=== PATIENT | female | born 1960 | race Caucasian/White ===

== ENCOUNTER → 2017-11-09 11:09 | Outpatient (CLI) | payer OTHER, SELFPAY ==
--- NOTE | 2017-11-09 | DI.MG.S_ITS ---
BILATERAL DIGITAL SCREENING MAMMOGRAM 3D/2D WITH CAD: 11/09/2017 CLINICAL: Routine screening. Family history of breast cancer. Comparison is made to exams dated: 07/16/2008 mammogram, 08/31/2006 mammogram, and 04/22/2004 mammogram - [facility]. The tissue of both breasts is heterogeneously dense. This may lower the sensitivity of mammography. Current study was also evaluated with a Computer Aided Detection (CAD) system. No significant masses, calcifications, or other findings are seen in either breast. There has been no significant interval change. IMPRESSION: NEGATIVE There is no mammographic evidence of malignancy. A 1 year screening mammogram is recommended. This exam was interpreted at Station ID: [id number]. NOTE: For mammograms, a report in lay terms will be sent to the patient. Approximately 15% of breast malignancies will not be visualized mammographically. In the management of a palpable breast mass, a negative mammogram must not discourage biopsy of a clinically suspicious lesion. Electronically Signed By: Maria Fernanda baez/godwin:11/09/2017 12:25:17 copy to: RACHAEL THOMAS letter sent: Normal Exam ACR BI-RADS Category 1: Negative [id number]
== END ==
PROVIDERS: Family Provider Family Medicine; PCP Family Medicine; Visit Provider Physician Assistant Medical
DX: Z12.31 Encounter for screening mammogram for malignant neoplasm of breast (principal); Z80.3 Family history of malignant neoplasm of breast
CPT/HCPCS: 77063; 77067

== ENCOUNTER 2019-01-10 16:27 | Emergency (ER) | payer OTHER, SELFPAY ==
[2019-01-10 16:54] VITALS: BP 158/78; PULSE 56; RESP 16; TEMP 36.4; O2SAT 98; BMI 32.2
--- NOTE | 2019-01-10 18:48 | DI.CT.S_ITS ---
PROCEDURE: CT CERVICAL SPINE WO CON INDICATIONS: weight dropped on head, c spine pain TECHNIQUE: Noncontrast 3 mm thick sections acquired from the skull base to the T4 level. Sagittal and coronal reformats were then constructed. For radiation dose reduction, the following was used: automated exposure control, adjustment of mA and/or kV according to patient size. COMPARISON: None. FINDINGS: Image quality: Excellent. Bones: Postsurgical changes compatible C4-C6 ACDF. Orthopedic hardware is intact. No lucency is identified at the bone hardware interface. No fractures or dislocations. There is approximately 2 mm of C7-T1 degenerative anterolisthesis. Visualized superior ribs are intact. Soft tissues: Prevertebral soft tissues are normal in thickness. No paravertebral hematomas. No apical pneumothoraces. IMPRESSION: No fracture. No acute osseous lesion. If there are persistent symptoms or continued clinical suspicion for pathology, then MRI should be considered for further evaluation. Dictated by: Daisy Doshi MD, PhD on 01/10/2019 at 19:39 Approved by: Daisy Doshi MD, PhD on 01/10/2019 at 19:45
--- NOTE | 2019-01-10 19:41 | DI.RAD.S_ITS ---
PROCEDURE: XR LUMBAR SPINE 2-3V INDICATIONS: pain after box fell on head TECHNIQUE: 3 views of the lumbar spine were acquired. COMPARISON: None. FINDINGS: Bones: 5 [id number]-lfijoer vertebrae are present. There is normal bony alignment. No vertebral body compression fractures. No suspicious bony lesions. Mild multilevel degenerative disc disease. Soft tissues: Overlying bowel gas pattern is normal. No suspicious soft tissue calcifications. IMPRESSION: No fracture. No acute osseous lesion. If there are persistent symptoms or continued clinical suspicion for pathology, then MRI should be considered for further evaluation. Dictated by: Daisy Doshi MD, PhD on 01/10/2019 at 20:11 Approved by: Daisy Doshi MD, PhD on 01/10/2019 at 20:12
--- NOTE | 2019-01-10 19:41 | DI.RAD.S_ITS ---
PROCEDURE: XR THORACIC SPINE 2V INDICATIONS: pain after box fell on head TECHNIQUE: 2 views of the thoracic spine were acquired. COMPARISON: None. FINDINGS: Bones: No fractures or dislocations. No suspicious bony lesions. 12 pairs of ribs are noted, and appear intact where visualized. Mild multilevel degenerative changes. Soft tissues: No paravertebral stripe thickening. IMPRESSION: No fracture. No acute osseous lesion. If there are persistent symptoms or continued clinical suspicion for pathology, then MRI should be considered for further evaluation. Dictated by: Daisy Doshi MD, PhD on 01/10/2019 at 19:55 Approved by: Daisy Doshi MD, PhD on 01/10/2019 at 19:55
[2019-01-10] MEDS: CYCLOBENZAPRINE 10 MG TABLET PO (19:48)
[2019-01-10] MEDS: KETOROLAC 60 MG/2 ML VIAL IM (20:18)
--- NOTE | 2019-01-10 20:43 | ED.BACK ---
HPI - Back Pain/Injury <LAURA Cuadra- - Last Filed: 01/10/19 20:48> General Chief Complaint: Back Pain/Injury Stated Complaint: Box fell on head @ work, sent from [place] Time Seen by Provider: 01/10/19 18:28 Source: patient and family Mode of arrival: ambulatory Limitations: no limitations History of Present Illness HPI Narrative: The patient is a 58-year-old female nonsmoker with history of GERD and hypothyroid who presents with a chief complaint of neck and back pain. She states that she had a 10 lb box a fall on her head on Sunday. Since then she has had midline neck pain as well as muscle spasms going up and down her back. She complains of pain down her mid T-spine. She denies any fevers nausea vomiting or diarrhea. She denies any history of cancer. She denies any saddle anesthesia, groin numbness or incontinence of bowel or incontinence of bladder. She was evaluated at a clinic at [facility] prior to being sent here. She states that she was sent here for a neck CT, comes without a collar. Related Data Home Medications Medication Instructions Recorded Confirmed levothyroxine 25 mcg PO DAILY 01/10/19 01/10/19 trazodone 100 mg PO DAILY 01/10/19 01/10/19 Previous Rx's Medication Instructions Recorded omeprazole 40 mg PO QA #20 cap 05/21/17 Allergies Allergy/AdvReac Type Severity Reaction Status Date / Time aspirin [ASPIRIN] Allergy Severe MOUTH Verified 01/10/19 19:47 SWELLING Penicillins [PENICILLINS] Allergy Intermediate STOMACH Verified 01/10/19 19:47 PAIN Sulfa (Sulfonamide Allergy Mild STOMACH Verified 01/10/19 19:47 Antibiotics) PAIN [SULFA (SULFONAMIDE ANTIBIOTICS)] Review of Systems <SABRINA Cuadra - Last Filed: 01/10/19 20:48> Review of Systems GENERAL: Denies chills, fatigue, malaise, fever, sweats. HEENT: Denies sinus pain, ear pain, sore throat, difficulty swallowing, dizziness. RESPIRATORY: Denies dyspnea, cough, wheezing, hemoptysis, sputum. CARDIOVASCULAR: Denies chest pain, palpitations, orthopnea, edema, GASTROINTESTINAL: Denies nausea, vomiting, abdominal pain, diarrhea, constipation, melena. : Denies dysuria, frequency, incontinence, hematuria, urinary retention. MUSCULOSKELETAL: See HPI SKIN: Denies rash, skin lesions, or other NEUROLOGIC: See HPI PSYCHIATRIC: No concerning psychosocial issues. 12 point review of systems is negative except for those stated above PFSH <MADELYN Cuadra - Last Filed: 01/10/19 20:48> Medical History (Updated 01/10/19 @ 20:44 by MADELYN Cuadra) Hypothyroid (Acute) Social History Smoking Status: Never smoker Social History Smoking Status: Never smoker Exam <MADELYN Cuadra - Last Filed: 01/10/19 20:48> Narrative Exam Narrative: GENERAL: This is a well-nourished, well-developed patient, in mild distress. HEAD: Atraumatic. Normocephalic. No temporal or scalp tenderness. EYES: Pupils equal round and reactive. Extraocular motions intact. No scleral icterus. No injection or drainage. ENT: Nose without bleeding, purulent drainage or septal hematoma. Throat without erythema, tonsillar hypertrophy or exudate. Uvula midline. Airway patent. No nystagmus. NECK: Trachea midline. No JVD or lymphadenopathy. Supple, nontender, no meningeal signs. CARDIOVASCULAR: Regular rate and rhythm RESPIRATORY: Clear to auscultation. Breath sounds equal bilaterally. No wheezes, rales, or rhonchi. No cough. No increased respiratory effort. No accessory muscle use. GASTROINTESTINAL: Abdomen soft, non-tender, nondistended. No hepato-splenomegaly, or palpable masses. No guarding. EXTREMITIES: No clubbing, cyanosis, or edema. No joint tenderness, effusion, or edema noted. BACK: Pain to palpation midline C-spine, T-spine and bilateral paraspinal muscles lumbar spine. No palpable step-offs or deformities. NEURO: AOx3. Strength is equal upper and lower extremities bilaterally. Stable gait. No gross cranial nerve deficit. SKIN: No rash or erythema. Initial Vital Signs Initial Vital Signs: Vital Signs Temperature 97.5 F L 01/10/19 16:54 Pulse Rate 56 L 01/10/19 16:54 Respiratory Rate 16 01/10/19 16:54 Blood Pressure 158/78 H 01/10/19 16:54 Pulse Oximetry 98 01/10/19 16:54 <Elie Marr MD - Last Filed: 01/11/19 05:20> Initial Vital Signs Initial Vital Signs: Vital Signs Temperature 97.5 F L 01/10/19 16:54 Pulse Rate 56 L 01/10/19 16:54 Respiratory Rate 16 01/10/19 16:54 Blood Pressure 158/78 H 01/10/19 16:54 Pulse Oximetry 98 01/10/19 16:54 Scores <MADELYN Cuadra - Last Filed: 01/10/19 20:48> GCS [place] coma scale eye opening: Spontaneous Cristi coma scale verbal response: Orientated [place] coma scale motor response: Obey commands [place] coma scale total score: 15 Course <MADELYN Cuadra - Last Filed: 01/10/19 20:48> Orders Ordered: Discontinued Medications Cyclobenzaprine HCl (Flexeril) 10 mg PO NOW ONE Stop: 01/10/19 19:34 Last Admin: 01/10/19 19:48 Dose: 10 mg Ketorolac Tromethamine (Toradol) 60 mg IM NOW ONE Stop: 01/10/19 19:34 Last Admin: 01/10/19 20:18 Dose: 60 mg Vital Signs - 8 hr 01/10/19 16:54 Temperature 97.5 F L Pulse Rate 56 L Respiratory Rate 16 Blood Pressure 158/78 H Pulse Oximetry 98 <Elie Marr MD - Last Filed: 01/11/19 05:20> Orders Ordered: Discontinued Medications Cyclobenzaprine HCl (Flexeril) 10 mg PO NOW ONE Stop: 01/10/19 19:34 Last Admin: 01/10/19 19:48 Dose: 10 mg Ketorolac Tromethamine (Toradol) 60 mg IM NOW ONE Stop: 01/10/19 19:34 Last Admin: 01/10/19 20:18 Dose: 60 mg Vital Signs - 8 hr 01/10/19 16:54 Temperature 97.5 F L Pulse Rate 56 L Respiratory Rate 16 Blood Pressure 158/78 H Pulse Oximetry 98 MDM - Back Pain/Injury <MADELYN Cuadra - Last Filed: 01/10/19 20:48> Imaging Data Lumbar x-ray: Radiologist's impression: [address] [id number] XRay Report Signed Patient: Mary Brown [facility]#: [id number] : 1960Acct:[id number] Age/Sex: 58 / FDate of Service: 01/10/19 Loc: ED Accession Number: [id number] Procedure: XR lumbar spine 2-3V Ordering Provider: Sandra Garrett PROCEDURE: XR LUMBAR SPINE 2-3V INDICATIONS: pain after box fell on head TECHNIQUE: 3 views of the lumbar spine were acquired. COMPARISON: None. FINDINGS: Bones: 5 qbs-puh-cqdadwn vertebrae are present. There is normal bony alignment. No vertebral body compression fractures. No suspicious bony lesions. Mild multilevel degenerative disc disease. Soft tissues: Overlying bowel gas pattern is normal. No suspicious soft tissue calcifications. IMPRESSION: No fracture. No acute osseous lesion. If there are persistent symptoms or continued clinical suspicion for pathology, then MRI should be considered for further evaluation. Dictated by: Daisy Doshi MD, PhD on 01/10/2019 at 20:11 Approved by: Daisy Doshi MD, PhD on 01/10/2019 at 20:12 T-spine x-ray: Radiologist's impression: [address] [address] XRay Report Signed Patient: Mary Brown [facility]#: [id number] : 1960Acct:[id number] Age/Sex: 58 / FDate of Service: 01/10/19 Loc: ED Accession Number: [id number] Procedure: XR thoracic spine 2V Ordering Provider: Sandra Garrett PROCEDURE: XR THORACIC SPINE 2V INDICATIONS: pain after box fell on head TECHNIQUE: 2 views of the thoracic spine were acquired. COMPARISON: None. FINDINGS: Bones: No fractures or dislocations. No suspicious bony lesions. 12 pairs of ribs are noted, and appear intact where visualized. Mild multilevel degenerative changes. Soft tissues: No paravertebral stripe thickening. IMPRESSION: No fracture. No acute osseous lesion. If there are persistent symptoms or continued clinical suspicion for pathology, then MRI should be considered for further evaluation. Dictated by: Daisy Doshi MD, PhD on 01/10/2019 at 19:55 Approved by: Daisy Doshi MD, PhD on 01/10/2019 at 19:55 CT C-spine: Radiologist's impression: [address] [address] [address] Scan Report Signed Patient: Mary Brown [facility]#: [id number] : 1960Acct:[id number] Age/Sex: 58 / FDate of Service: 01/10/19 Loc: ED Accession Number: [id number] Procedure: CT cervical spine wo con Ordering Provider: Sandra Garrett [employer]PER- PROCEDURE: CT CERVICAL SPINE WO CON INDICATIONS: weight dropped on head, c spine pain TECHNIQUE: Noncontrast 3 mm thick sections acquired from the skull base to the T4 level. Sagittal and coronal reformats were then constructed. For radiation dose reduction, the following was used: automated exposure control, adjustment of mA and/or kV according to patient size. COMPARISON: None. FINDINGS: Image quality: Excellent. Bones: Postsurgical changes compatible C4-C6 ACDF. Orthopedic hardware is intact. No lucency is identified at the bone hardware interface. No fractures or dislocations. There is approximately 2 mm of C7-T1 degenerative anterolisthesis. Visualized superior ribs are intact. Soft tissues: Prevertebral soft tissues are normal in thickness. No paravertebral hematomas. No apical pneumothoraces. IMPRESSION: No fracture. No acute osseous lesion. If there are persistent symptoms or continued clinical suspicion for pathology, then MRI should be considered for further evaluation. Dictated by: Daisy Doshi MD, PhD on 01/10/2019 at 19:39 Approved by: Daisy Doshi MD, PhD on 01/10/2019 at 19:45 The patient is a 58 MDM Narrative Medical decision making narrative: The patient is a 58-year-old female who presents with the chief complaint neck and back pain. She had a 10 lb box fall on her head a few days ago. She does have midline C-spine tenderness to palpation, so she was placed in a C-collar and a CT of her C-spine was obtained. We also obtained plain films of her T and L-spine. She was given Toradol and Flexeril in the emergency department with good effect. She has no acute findings on her imaging. She has no red flag symptoms of incontinence of bowel, incontinence of bladder or saddle anesthesia. I did offer her prescriptions of pain medicine, but she states she would prefer to follow up [place]. He she again declines pain medication prescriptions from me. After I told her imaging was negative, she requested to leave immediately. I discussed at length coming back to the ER for any acute concerns such as incontinence of bowel, incontinence of bladder or saddle anesthesia. Encouraged her to follow up with PCP. No questions or concerns upon discharge. Discharge Plan Departure Patient Disposition: Home Clinical Impression: Acute neck pain, Muscle spasm Back pain Qualifiers: Back pain location: thoracic back pain Chronicity: acute Back pain laterality: bilateral Qualified Code(s): M54.6 - Pain in thoracic spine Discharge Date/Time: 01/10/19 20:59 Interventions: ED Discharge Assessment Last Done: 01/10/19 20:59 Instructions: DI for Neck Sprain, DI for Neck Pain, DI for Back Spasm, DI for Back Strain or Sprain Activity Restrictions/Additional Instructions: Your CT scan and x-rays came back with no acute findings. You have elected to follow up with primary care provider for prescriptions. In the meantime, do not take ibuprofen Aleve or other NSAIDs for 8 hours after her emergency department visit. I suggest use [id number] cream such as Aspercreme or lidocaine patches. Please follow up with primary care provider. Please come back to the ER for any acute concerns such as incontinence of bowel, incontinence of bladder except Prescriptions: No Action omeprazole 40 MG capsule,delayed release(DR/EC) 40 mg PO QAM Qty: 20 RF: 0 levothyroxine 25 mcg Tablet 25 mcg PO DAILY RF: 0 trazodone 100 mg Tablet 100 mg PO DAILY RF: 0 Referrals: Kristopher Coburn MD [Primary Care Provider] - <Elie Marr MD - Last Filed: 01/11/19 05:20> Cosign ED Attending Cosignature Attestation: I was present in the ER at the time of this patient's care. I was available for consultation or to evaluate the patient directly. I agree with the evaluation, assessment and treatment plan.
--- NOTE | 2019-01-10 20:48 | ED_ITS ---
HPI - Back Pain/Injury <LAURA Cuadra- - Last Filed: 01/10/19 20:48> General Chief Complaint: Back Pain/Injury Stated Complaint: Box fell on head @ work, sent from [place] Time Seen by Provider: 01/10/19 18:28 Source: patient and family Mode of arrival: ambulatory Limitations: no limitations History of Present Illness HPI Narrative: The patient is a 58-year-old female nonsmoker with history of GERD and hypothyroid who presents with a chief complaint of neck and back pain. She states that she had a 10 lb box a fall on her head on Sunday. Since then she has had midline neck pain as well as muscle spasms going up and down her back. She complains of pain down her mid T-spine. She denies any fevers nausea vomiting or diarrhea. She denies any history of cancer. She denies any saddle anesthesia, groin numbness or incontinence of bowel or incontinence of bladder. She was evaluated at a clinic at [facility] prior to being sent here. She states that she was sent here for a neck CT, comes without a collar. Related Data Home Medications Medication Instructions Recorded Confirmed levothyroxine 25 mcg PO DAILY 01/10/19 01/10/19 trazodone 100 mg PO DAILY 01/10/19 01/10/19 Previous Rx's Medication Instructions Recorded omeprazole 40 mg PO QA #20 cap 05/21/17 Allergies Allergy/AdvReac Type Severity Reaction Status Date / Time aspirin [ASPIRIN] Allergy Severe MOUTH Verified 01/10/19 19:47 SWELLING Penicillins [PENICILLINS] Allergy Intermediate STOMACH Verified 01/10/19 19:47 PAIN Sulfa (Sulfonamide Allergy Mild STOMACH Verified 01/10/19 19:47 Antibiotics) PAIN [SULFA (SULFONAMIDE ANTIBIOTICS)] Review of Systems <SABRINA Cuadra - Last Filed: 01/10/19 20:48> Review of Systems GENERAL: Denies chills, fatigue, malaise, fever, sweats. HEENT: Denies sinus pain, ear pain, sore throat, difficulty swallowing, dizziness. RESPIRATORY: Denies dyspnea, cough, wheezing, hemoptysis, sputum. CARDIOVASCULAR: Denies chest pain, palpitations, orthopnea, edema, GASTROINTESTINAL: Denies nausea, vomiting, abdominal pain, diarrhea, constipation, melena. : Denies dysuria, frequency, incontinence, hematuria, urinary retention. MUSCULOSKELETAL: See HPI SKIN: Denies rash, skin lesions, or other NEUROLOGIC: See HPI PSYCHIATRIC: No concerning psychosocial issues. 12 point review of systems is negative except for those stated above PFSH <MADELYN Cuadra - Last Filed: 01/10/19 20:48> Medical History (Updated 01/10/19 @ 20:44 by MADELYN Cuadra) Hypothyroid (Acute) Social History Smoking Status: Never smoker Social History Smoking Status: Never smoker Exam <MADELYN Cuadra - Last Filed: 01/10/19 20:48> Narrative Exam Narrative: GENERAL: This is a well-nourished, well-developed patient, in mild distress. HEAD: Atraumatic. Normocephalic. No temporal or scalp tenderness. EYES: Pupils equal round and reactive. Extraocular motions intact. No scleral icterus. No injection or drainage. ENT: Nose without bleeding, purulent drainage or septal hematoma. Throat without erythema, tonsillar hypertrophy or exudate. Uvula midline. Airway patent. No nystagmus. NECK: Trachea midline. No JVD or lymphadenopathy. Supple, nontender, no meningeal signs. CARDIOVASCULAR: Regular rate and rhythm RESPIRATORY: Clear to auscultation. Breath sounds equal bilaterally. No wheezes, rales, or rhonchi. No cough. No increased respiratory effort. No accessory muscle use. GASTROINTESTINAL: Abdomen soft, non-tender, nondistended. No hepato- splenomegaly, or palpable masses. No guarding. EXTREMITIES: No clubbing, cyanosis, or edema. No joint tenderness, effusion, or edema noted. BACK: Pain to palpation midline C-spine, T-spine and bilateral paraspinal muscles lumbar spine. No palpable step-offs or deformities. NEURO: AOx3. Strength is equal upper and lower extremities bilaterally. Stable gait. No gross cranial nerve deficit. SKIN: No rash or erythema. Initial Vital Signs Initial Vital Signs: Vital Signs Temperature 97.5 F L 01/10/19 16:54 Pulse Rate 56 L 01/10/19 16:54 Respiratory Rate 16 01/10/19 16:54 Blood Pressure 158/78 H 01/10/19 16:54 Pulse Oximetry 98 01/10/19 16:54 <Elie Marr MD - Last Filed: 01/11/19 05:20> Initial Vital Signs Initial Vital Signs: Vital Signs Temperature 97.5 F L 01/10/19 16:54 Pulse Rate 56 L 01/10/19 16:54 Respiratory Rate 16 01/10/19 16:54 Blood Pressure 158/78 H 01/10/19 16:54 Pulse Oximetry 98 01/10/19 16:54 Scores <MADELYN Cuadra - Last Filed: 01/10/19 20:48> GCS Cristi coma scale eye opening: Spontaneous Cristi coma scale verbal response: Orientated Cristi coma scale motor response: Obey commands [place] coma scale total score: 15 Course <MADELYN Cuadra - Last Filed: 01/10/19 20:48> Orders Ordered: Discontinued Medications Cyclobenzaprine HCl (Flexeril) 10 mg PO NOW ONE Stop: 01/10/19 19:34 Last Admin: 01/10/19 19:48 Dose: 10 mg Ketorolac Tromethamine (Toradol) 60 mg IM NOW ONE Stop: 01/10/19 19:34 Last Admin: 01/10/19 20:18 Dose: 60 mg Vital Signs - 8 hr 01/10/19 16:54 Temperature 97.5 F L Pulse Rate 56 L Respiratory Rate 16 Blood Pressure 158/78 H Pulse Oximetry 98 <Elie Marr MD - Last Filed: 01/11/19 05:20> Orders Ordered: Discontinued Medications Cyclobenzaprine HCl (Flexeril) 10 mg PO NOW ONE Stop: 01/10/19 19:34 Last Admin: 01/10/19 19:48 Dose: 10 mg Ketorolac Tromethamine (Toradol) 60 mg IM NOW ONE Stop: 01/10/19 19:34 Last Admin: 01/10/19 20:18 Dose: 60 mg Vital Signs - 8 hr 01/10/19 16:54 Temperature 97.5 F L Pulse Rate 56 L Respiratory Rate 16 Blood Pressure 158/78 H Pulse Oximetry 98 MDM - Back Pain/Injury <MADELYN Cuadra - Last Filed: 01/10/19 20:48> Imaging Data Lumbar x-ray: Radiologist's impression: [address] [address] XRay Report Signed Patient: Mary Brown [facility]#: [id number] : 1960Acct:[id number] Age/Sex: 58 / FDate of Service: 01/10/19 Loc: ED Accession Number: [id number] Procedure: XR lumbar spine 2-3V Ordering Provider: Sandra Garrett PROCEDURE: XR LUMBAR SPINE 2-3V INDICATIONS: pain after box fell on head TECHNIQUE: 3 views of the lumbar spine were acquired. COMPARISON: None. FINDINGS: Bones: 5 [id number] vertebrae are present. There is normal bony alignment. No vertebral body compression fractures. No suspicious bony lesions. Mild multilevel degenerative disc disease. Soft tissues: Overlying bowel gas pattern is normal. No suspicious soft tissue calcifications. IMPRESSION: No fracture. No acute osseous lesion. If there are persistent symptoms or continued clinical suspicion for pathology, then MRI should be considered for further evaluation. Dictated by: Daisy Doshi MD, PhD on 01/10/2019 at 20:11 Approved by: Daisy Doshi MD, PhD on 01/10/2019 at 20:12 T-spine x-ray: Radiologist's impression: [address] [address] XRay Report Signed Patient: Mary Brown [facility]#: [id number] : 1960Acct:[id number] Age/Sex: 58 / FDate of Service: 01/10/19 Loc: ED Accession Number: [id number] Procedure: XR thoracic spine 2V Ordering Provider: Sandra Garrett PROCEDURE: XR THORACIC SPINE 2V INDICATIONS: pain after box fell on head TECHNIQUE: 2 views of the thoracic spine were acquired. COMPARISON: None. FINDINGS: Bones: No fractures or dislocations. No suspicious bony lesions. 12 pairs of ribs are noted, and appear intact where visualized. Mild multilevel degenerative changes. Soft tissues: No paravertebral stripe thickening. IMPRESSION: No fracture. No acute osseous lesion. If there are persistent symptoms or continued clinical suspicion for pathology, then MRI should be considered for further evaluation. 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 Sagittal and coronal reformats were then constructed. For radiation dose reduction, the following was used: automated exposure control, adjustment of mA and/or kV according to patient size. COMPARISON: None. FINDINGS: Image quality: Excellent. Bones: Postsurgical changes compatible C4-C6 ACDF. Orthopedic hardware is intact. No lucency is identified at the bone hardware interface. No fractures or dislocations. There is approximately 2 mm of C7-T1 degenerative anterolisthesis. Visualized superior ribs are intact. Soft tissues: Prevertebral soft tissues are normal in thickness. No paravertebral hematomas. No apical pneumothoraces. IMPRESSION: No fracture. No acute osseous lesion. If there are persistent symptoms or continued clinical suspicion for pathology, then MRI should be considered for further evaluation. Dictated by: Daisy Doshi MD, PhD on 01/10/2019 at 19:39 Approved by: Daisy Doshi MD, PhD on 01/10/2019 at 19:45 The patient is a 58 MDM Narrative Medical decision making narrative: The patient is a 58-year-old female who presents with the chief complaint neck and back pain. She had a 10 lb box fall on her head a few days ago. She does have midline C-spine tenderness to palpation, so she was placed in a C-collar and a CT of her C-spine was obtained. We also obtained plain films of her T and L-spine. She was given Toradol and Flexeril in the emergency department with good effect. She has no acute findings on her imaging. She has no red flag symptoms of incontinence of bowel, incontinence of bladder or saddle anesthesia. I did offer her prescriptions of pain medicine, but she states she would prefer to follow up [place]. He she again declines pain medication prescriptions from me. After I told her imaging was negative, she requested to leave immediately. I discussed at length coming back to the ER for any acute concerns such as incontinence of bowel, incontinence of bladder or saddle anesthesia. Encouraged her to follow up with PCP. No questions or concerns upon discharge. Discharge Plan Departure Patient Disposition: Home Clinical Impression: Acute neck pain, Muscle spasm Back pain Qualifiers: Back pain location: thoracic back pain Chronicity: acute Back pain laterality: bilateral Qualified Code(s): M54.6 - Pain in thoracic spine Discharge Date/Time: 01/10/19 20:59 Interventions: ED Discharge Assessment Last Done: 01/10/19 20:59 Instructions: DI for Neck Sprain, DI for Neck Pain, DI for Back Spasm, DI for Back Strain or Sprain Activity Restrictions/Additional Instructions: Your CT scan and x-rays came back with no acute findings. You have elected to follow up with primary care provider for prescriptions. In the meantime, do not take ibuprofen Aleve or other NSAIDs for 8 hours after her emergency department visit. I suggest use [id number] cream such as Aspercreme or lidocaine patches. Please follow up with primary care provider. Please come back to the ER for any acute concerns such as incontinence of bowel, incontinence of bladder except Prescriptions: No Action omeprazole 40 MG capsule,delayed release(DR/EC) 40 mg PO QAM Qty: 20 RF: 0 levothyroxine 25 mcg Tablet 25 mcg PO DAILY RF: 0 trazodone 100 mg Tablet 100 mg PO DAILY RF: 0 Referrals: Kristopher Coburn MD [Primary Care Provider] - <Elie Marr MD - Last Filed: 01/11/19 05:20> Cosign ED Attending Cosignature Attestation: I was present in the ER at the time of this patient's care. I was available for consultation or to evaluate the patient directly. I agree with the evaluation, assessment and treatment plan.
== END 2019-01-10 20:59 | disposition home or self-care (01) ==
PROVIDERS: Emergency Provider Nurse Practitioner Family; Family Provider Family Medicine; PCP Family Medicine
DX: M54.2 Cervicalgia (principal); M62.838 Other muscle spasm; M54.6 Pain in thoracic spine; W20.8XXA Other cause of strike by thrown, projected or falling object, initial encounter; Y99.0 Civilian activity done for income or pay
CPT/HCPCS: 72070; 72100; 72125; 96372; 99282; 99284; J1885

== ENCOUNTER → 2019-02-14 10:53 | Outpatient (CLI) | payer OTHER, SELFPAY ==
--- NOTE | 2019-02-14 | DI.MRI.S_ITS ---
PROCEDURE: MR CERVICAL SPINE WO/W CON INDICATIONS: Other cause of strike by thrown, projected or fall TECHNIQUE: Noncontrast sagittal T1 spin echo and T2 fast spin echo, sagittal STIR, foraminal oblique sagittal T2 fast spin echo, axial gradient echo or T2 fast spin echo through the cervical spine. After the administration of contrast, axial and sagittal T1 spin echo with fat saturation through the cervical spine. COMPARISON: [facility], MR, C-SPINE WITHOUT CONTRAST, 01/15/2009, 17:36. [facility], CT, CT CERVICAL SPINE WO CON, 01/10/2019, 19:05. FINDINGS: Image quality: Diagnostic, with note made of motion artifact. Alignment and curvature: There is normal bony alignment. Marrow: Marrow is normal in overall signal, without suspicious enhancement. Spinal cord: Visualized spinal cord has normal size and signal. No cerebellar tonsillar herniation. No abnormal intramedullary enhancement. Paraspinous soft tissues: No paravertebral masses or suspicious enhancement. Thank you fixation hardware is seen at C4, C5, and C6. Disc spacers are seen. Mild susceptibility artifact is seen. C2-3: The disc height is well-preserved. Loss of disc signal is seen at this level. A mild degree of generalized disc osteophyte complex is seen. There is moderate left-sided and no significant right-sided facet hypertrophy seen. There is mild to moderate left-sided and no right-sided neural foraminal narrowing seen. The central canal is widely patent. These imaging findings have progressed compared to the prior study. C3-4: The disc height is well-preserved. Loss of disc signal is seen at this level. A mild degree of generalized disc osteophyte complex is seen. No significant neural foraminal or central canal narrowing can be seen. When comparison is made with the prior examination, these findings are similar. C4-5: A mild degree of generalized disc osteophyte complex is seen. No significant neural foraminal or central canal narrowing can be seen. C5-6: Mild to moderate disc osteophyte complex is seen. No significant neural foraminal or central canal narrowing can be seen. C6-7: Mild loss of disc height is seen. Loss of disc signal is seen. Moderate disc osteophyte complex is seen, which is eccentric to the left. There is moderate bilateral neural foraminal narrowing seen. [id number] central canal narrowing is seen. These imaging findings have progressed compared to the prior study. C7-T1: No significant abnormality is seen. IMPRESSION: C4-C6 anterior fixation hardware. Multiple levels of degenerative change are seen, which have progressed at C2-C3 and C6-C7 compared to 2009. Dictated by: José Luis Salamanca M.D. on 02/14/2019 at 11:34 Approved by: José Luis Salamanca M.D. on 02/14/2019 at 11:40
== END ==
PROVIDERS: Family Provider Family Medicine; PCP Family Medicine; Visit Provider Physician Assistant
DX: M54.2 Cervicalgia (principal); W20.8XXA Other cause of strike by thrown, projected or falling object, initial encounter
CPT/HCPCS: 72156; A9579

== ENCOUNTER → 2020-12-17 09:14 | Outpatient (CLI) | payer OTHER, SELFPAY ==
[2020-12-17 10:17] LABS: COVID19 -Nasal RAPID Negative (Negative)
== END ==
PROVIDERS: Family Provider Family Medicine; PCP Family Medicine; Referring Provider Internal Medicine; Visit Provider Internal Medicine
DX: Z20.822 Contact with and (suspected) exposure to COVID-19 (principal)
CPT/HCPCS: 87635

== ENCOUNTER → 2020-12-17 09:19 | Outpatient (CLI) | payer OTHER, SELFPAY ==
--- NOTE | 2020-12-22 10:10 | PM.PFT.1 ---
Pulmonary Function Test Referral & Results Date Patient Seen: 12/17/20 Requesting provider: Brionna Monreal Indication: Asthma Results: The spirometry demonstrates an FVC of 3.0 L which is 103% of predicted. The FEV1 was measured at 2.53 L which is 112% of predicted. The FEV1/FVC ratio was 84 which is 107% of predicted. Following the administration of bronchodilator there was a 26% improvement in FEF 25-75%. The diffusing capacity was measured at 27.61 which is 136% of predicted. Interpretation: Patient's forced spirometry as above technically normal although there is evidence of benefit following bronchodilator as noted by the improvement in FEF 25-75% which represents small airway flow Diffusing capacity is also supranormal, which is consistent with a diagnosis of asthma Clinical correlation suggested
== END ==
PROVIDERS: Family Provider Family Medicine; PCP Family Medicine; Referring Provider Internal Medicine Critical Care Medicine; Visit Provider Internal Medicine Critical Care Medicine
DX: J45.21 Mild intermittent asthma with (acute) exacerbation (principal); Z20.822 Contact with and (suspected) exposure to COVID-19
CPT/HCPCS: 87635; 94060; 94729; C9803

== ENCOUNTER → 2020-12-17 09:21 | Outpatient (CLI) | payer OTHER, SELFPAY ==
--- NOTE | 2020-12-17 | DI.MG.S_ITS ---
BILATERAL DIGITAL SCREENING MAMMOGRAM 3D/2D WITH CAD: 12/17/2020 CLINICAL: Routine screening. Family history of breast cancer. Comparison is made to exams dated: 11/09/2017 mammogram and 07/16/2008 mammogram - [facility]. The tissue of both breasts is heterogeneously dense. This may lower the sensitivity of mammography. Current study was also evaluated with a Computer Aided Detection (CAD) system. No significant masses, calcifications, or other findings are seen in either breast. There has been no significant interval change. IMPRESSION: NEGATIVE There is no mammographic evidence of malignancy. A 1 year screening mammogram is recommended. This exam was interpreted at Station ID: [id number]. NOTE: For mammograms, a report in lay terms will be sent to the patient. Approximately 15% of breast malignancies will not be visualized mammographically. In the management of a palpable breast mass, a negative mammogram must not discourage biopsy of a clinically suspicious lesion. Electronically Signed By: Song pérez/gdowin:12/17/2020 10:33:46 copy to: RACHAEL THOMAS letter sent: Normal Exam ACR BI-RADS Category 1: Negative [id number]
== END ==
PROVIDERS: Family Provider Family Medicine; PCP Family Medicine; Referring Provider Family Medicine; Visit Provider Family Medicine
DX: Z12.31 Encounter for screening mammogram for malignant neoplasm of breast (principal); Z80.3 Family history of malignant neoplasm of breast
CPT/HCPCS: 77063; 77067

== ENCOUNTER → 2021-03-03 12:23 | Outpatient (CLI) | payer OTHER, SELFPAY ==
[2021-03-03 19:59] LABS: Thyroid Stimulating Hormone 1.83 uIU/mL (0.47-4.68)
== END ==
PROVIDERS: Family Provider Family Medicine; PCP Physician Assistant; Visit Provider Family Medicine
DX: E03.9 Hypothyroidism, unspecified (principal); G47.00 Insomnia, unspecified; G56.00 Carpal tunnel syndrome, unspecified upper limb
CPT/HCPCS: 84443

== ENCOUNTER 2021-03-11 16:01 | Emergency (ER) | payer OTHER, SELFPAY ==
[2021-03-11] VITALS (50 sets, daily range): BP systolic 68–133; BP diastolic 32–89; PULSE 61–114; RESP 13–39; TEMP 36.8; O2SAT 93–100; BMI 26.8
--- NOTE | 2021-03-11 16:14 | DI.RAD.S_ITS ---
PROCEDURE: XR CHEST 1V INDICATIONS: chest pain TECHNIQUE: One view of the chest was acquired. COMPARISON: None. FINDINGS: Surgical changes and devices: Lower cervical fusion. Lungs and pleura: Lungs are clear. No pleural effusions or pneumothorax. Mediastinum: Mediastinal contours appear normal. Heart size is normal. Bones and chest wall: No suspicious bony lesions. Overlying soft tissues appear unremarkable. IMPRESSION: No acute cardiopulmonary disease. Dictated by: Isaías De La Rosa M.D. on 03/11/2021 at 17:02 Approved by: Isaías De La Rosa M.D. on 03/11/2021 at 17:02
[2021-03-11 16:41] LABS: COVID19 -Nasal RAPID Negative (Negative)
--- NOTE | 2021-03-11 16:57 | PC.NURSE ---
Pt also reports severe dry mouth with no origin, has improved but not resolved.
[2021-03-11 16:58] LABS: Add Manual Diff / Slide Review NO; Basophils Absolute Auto 0 /uL (0-100); Basophils Percent Auto 0.4 % (0-2); Eosinophils Absolute Auto 200 /uL (0-450); Eosinophils Percent Auto 2.8 % (2-4); Hematocrit 37.9 % (36-46); Hemoglobin 12.8 g/dL (12.0-16.0); Lymphocytes Absolute Auto 1100 /uL (1100-4500); Mean Corpuscular HGB Conc 33.7 % (30-36); Mean Corpuscular Hemoglobin 30.4 PG (26-34); Mean Corpuscular Volume 90.1 fL (80-100); Monocytes Absolute Auto 500 /uL (0-900); Monocytes Percent Auto 6.4 % (3-14); Neutrophils Absolute Auto 5900 /uL (1500-7000); Neutrophils Percent Auto 76.4 % (50-75); Platelet Count 175 X10^3/uL (150-400); Red Blood Cell Count 4.21 X10^6/uL (4.0-5.2); Red Cell Distribution Width 13.3 % (11.6-14.8); White Blood Cell Count 7.7 X10^3/uL (4.5-11.0)
--- NOTE | 2021-03-11 17:14 | ED_ITS ---
HPI - Chest Pain <Sandra Hurst, DO - Last Filed: 03/13/21 15:00> General Chief Complaint: Chest Pain Stated Complaint: Anxiety, Chest Pain Time Seen by Provider: 03/11/21 16:29 Related Data Home Medications Medication Instructions Recorded Confirmed levothyroxine 25 mcg tablet 25 mcg PO DAILY 01/10/19 03/11/21 beclomethasone dipropionate 80 2 inh INHALATION BID g 03/01/21 03/03/21 mcg/actuation HFA breath activated aerosol (Qvar RediHaler) levalbuterol tartrate 45 2 inh INHALATION ONCE PRN g 03/01/21 03/11/21 mcg/actuation aerosol inhaler Previous Rx's Medication Instructions Recorded nitroglycerin 0.4 mg sublingual 0.4 mg SUBLINGUAL Q5-15M PRN #20 03/11/21 tablet tab Allergies Allergy/AdvReac Type Severity Reaction Status Date / Time aspirin [ASPIRIN] Allergy Severe MOUTH Verified 03/03/21 11:45 SWELLING Penicillins [PENICILLINS] Allergy Intermediate STOMACH Verified 03/03/21 11:45 PAIN Sulfa (Sulfonamide Allergy Mild STOMACH Verified 03/03/21 11:45 Antibiotics) PAIN [SULFA (SULFONAMIDE ANTIBIOTICS)] albuterol Allergy Unknown Palpitation Verified 03/03/21 11:45 s calamine Allergy Unknown Verified 03/03/21 11:45 carbamazepine Allergy Unknown Verified 03/03/21 11:45 codeine Allergy Unknown Verified 03/03/21 11:45 diphenhydramine Allergy Unknown Verified 03/03/21 11:45 [From Benadryl] epinephrine Allergy Unknown Verified 03/03/21 11:45 glucosamine Allergy Unknown Verified 03/03/21 11:45 <Ghanshyam Dukes DO - Last Filed: 03/12/21 01:41> History of Present Illness HPI narrative: 60-year-old female nonsmoker with history of asthma presents with her in the chief complaint of left-sided anterior chest pressure and tightness over the past few days. She states it started rather suddenly while she was working a few days ago and seems to get worse with exertion and improved with rest. She states at its most intense her pain is 10/10 and on arrival she is about a 4/10. She denies any radiation of her discomfort and states that it is been there more often than not over the past few days. When the pain worsens she seems to have increased dizziness, lightheadedness and shortness of breath. She denies any recent travel, injury or history of blood clot. On arrival EMS gave the patient full dose aspirin as well as a few nitro which improved her symptoms. She denies any cardiac history and has never had a stress test. Patient states that she just assumed to her shortness of breath was because of her asthma acting up but it did not seem to respond to her typical therapies. Additionally, she states that she has had increasing fatigue and exertional dyspnea over the past few weeks or months but just attributed to being deconditioned from being less active during COVID. She has been vaccinated against coronavirus <Ghanshyam Dukes DO - Last Filed: 03/12/21 01:41> Review of Systems Narrative: GENERAL: See HPI HEENT: Denies sinus pain, ear pain, sore throat, difficulty swallowing, dizziness. RESPIRATORY: Denies dyspnea, cough, wheezing, hemoptysis, sputum. CARDIOVASCULAR: See HPI GASTROINTESTINAL: See HPI : Denies dysuria, frequency, incontinence, hematuria, urinary retention. MUSCULOSKELETAL: denies weakness, joint pain, or bony pain SKIN: Denies rash, skin lesions, or other NEUROLOGIC: Denies weakness, headache, numbness, change in speech, confusion, seizures, incoordination. PSYCHIATRIC: No concerning psychosocial issues. 12 point review of systems is negative except for those stated above Patient History <Sandra Hurst DO - Last Filed: 03/13/21 15:00> Medical History Carpal tunnel syndrome Chest pain Hypothyroid Personal history of pneumonia Social History Smoking Status: Never smoker Smoking Status: Never smoker alcohol intake frequency: 0-2 drinks per day Substance Use Type: does not use Exam <Sandra Hurst DO - Last Filed: 03/13/21 15:00> Initial Vital Signs Initial Vital Signs: Vital Signs Temperature 98.3 F 03/11/21 16:09 Pulse Rate 100 H 03/11/21 16:09 Respiratory Rate 16 03/11/21 16:09 Blood Pressure 126/57 L 03/11/21 16:09 Pulse Oximetry 100 03/11/21 16:09 <Ghanshyam Dukes DO - Last Filed: 03/12/21 01:41> Narrative Exam Narrative: GENERAL: [60 year old patient appears stated age. Well-developed patient, in mild distress. HEAD: Atraumatic. Normocephalic. EYES: Pupils equal round and reactive. Extraocular motions intact. No scleral icterus. No injection or drainage. ENT: Nose without bleeding, purulent drainage. Throat without erythema, tonsillar hypertrophy or exudate. Airway patent. NECK: Trachea midline. Non tender CARDIOVASCULAR: Regular rate and rhythm without murmurs, gallops, or rubs. RESPIRATORY: Clear to auscultation. Breath sounds equal bilaterally. No wheezes, rales, or rhonchi. GASTROINTESTINAL: Abdomen soft, non-tender, nondistended. EXTREMITIES: No edema or joint tenderness. BACK: Nontender without deformity or crepitance. No flank tenderness. NEURO: AOx3. SKIN: No rash or erythema of visible areas Initial Vital Signs Initial Vital Signs: Vital Signs Temperature 98.3 F 03/11/21 16:09 Pulse Rate 100 H 03/11/21 16:09 Respiratory Rate 16 03/11/21 16:09 Blood Pressure 126/57 L 03/11/21 16:09 Pulse Oximetry 100 03/11/21 16:09 Course <Sandra Hurst DO - Last Filed: 03/13/21 15:00> Orders Ordered: Discontinued Medications Atorvastatin Calcium (Atorvastatin 20 Mg Tablet) 80 mg PO NOW ONE Stop: 03/11/21 18:29 Last Admin: 03/11/21 18:37 Dose: 80 mg Documented by: TOREY Heparin Sodium (Porcine) (Heparin 5,000 Unit/Ml Vial) 4,000 unit IV NOW ONE Stop: 03/11/21 18:29 Last Admin: 03/11/21 18:38 Dose: 4,000 unit Documented by: TOREY Heparin Sodium/Dextrose (Heparin Drip) 25,000 unit in 500 mls @ 15.458 mls/hr IV CONT MALLY; Protocol Last Admin: 03/11/21 18:39 Dose: 12 units/kg/hr, 15.458 mls/hr Documented by: TOREY Nitroglycerin (Nitroglycerin 0.4 Mg Sl Tab) 0.4 mg SL [id number] PRN PRN Reason: Chest Pain Last Admin: 03/11/21 23:13 Dose: 0.4 mg Documented by: Admin: 03/11/21 18:41 Dose: 0.4 mg Documented by: TOREY Nitroglycerin (Nitroglycerin 0.4 Mg Sl Tab) 0.4 mg SL NOW ONE Stop: 03/11/21 23:14 Last Admin: 03/11/21 23:31 Dose: Not Given Documented by: MEGAN Nitroglycerin (Nitroglycerin Oint 1 Inch/Gm Oint...G.) 0.5 inch TOP NOW ONE Stop: 03/11/21 23:14 Last Admin: 03/11/21 23:37 Dose: Not Given Documented by: MEGAN Vital Signs Vital signs: Vital Signs - 8 hr 03/11/21 17:40 03/11/21 17:50 03/11/21 18:00 Temperature Pulse Rate 92 H 92 H 91 H Respiratory Rate 26 H 25 H 21 Blood Pressure 108/66 Pulse Oximetry 100 99 99 03/11/21 18:10 03/11/21 18:20 03/11/21 18:30 Temperature Pulse Rate 88 98 H 97 H Respiratory Rate 22 27 H 26 H Blood Pressure 110/87 Pulse Oximetry 100 100 100 03/11/21 18:40 03/11/21 18:41 03/11/21 18:43 Temperature Pulse Rate 96 H 96 H 99 H Respiratory Rate 31 H 39 H Blood Pressure 110/87 118/89 Pulse Oximetry 100 100 03/11/21 18:47 03/11/21 18:50 03/11/21 19:00 Temperature Pulse Rate 114 H 100 H 97 H Respiratory Rate 20 20 19 Blood Pressure 109/58 L 113/57 L 115/60 Pulse Oximetry 98 93 100 03/11/21 19:10 03/11/21 19:20 03/11/21 19:30 Temperature Pulse Rate 95 H 95 H 97 H Respiratory Rate 20 16 18 Blood Pressure 124/63 133/66 113/63 Pulse Oximetry 100 100 100 03/11/21 19:40 03/11/21 19:50 03/11/21 20:00 Temperature Pulse Rate 98 H 100 H 97 H Respiratory Rate 19 24 24 Blood Pressure 103/56 L 113/67 98/62 Pulse Oximetry 99 100 99 03/11/21 20:10 03/11/21 20:20 03/11/21 20:30 Temperature Pulse Rate 100 H 101 H 102 H Respiratory Rate 19 19 Blood Pressure 108/54 L 115/54 L 113/55 L Pulse Oximetry 99 97 98 03/11/21 20:40 03/11/21 20:50 03/11/21 21:00 Temperature Pulse Rate 103 H 107 H 103 H Respiratory Rate 13 Blood Pressure 105/57 L 107/57 L 112/56 L Pulse Oximetry 99 97 98 03/11/21 21:10 03/11/21 21:20 03/11/21 21:30 Temperature Pulse Rate 103 H 101 H 101 H Respiratory Rate 18 16 Blood Pressure 105/56 L 115/53 L 108/55 L Pulse Oximetry 97 97 96 03/11/21 21:40 03/11/21 21:50 03/11/21 22:00 Temperature Pulse Rate 105 H 101 H 105 H Respiratory Rate 20 16 Blood Pressure 102/60 111/62 109/58 L Pulse Oximetry 98 96 98 03/11/21 22:10 03/11/21 22:20 03/11/21 22:30 Temperature Pulse Rate 97 H 96 H 95 H Respiratory Rate 24 26 H Blood Pressure 103/55 L 101/53 L 97/50 L Pulse Oximetry 96 96 94 03/11/21 22:40 03/11/21 22:50 03/11/21 23:00 Temperature Pulse Rate 96 H 96 H 91 H Respiratory Rate 25 H 22 22 Blood Pressure 101/55 L 101/56 L 90/55 L Pulse Oximetry 95 95 95 03/11/21 23:10 03/11/21 23:13 03/11/21 23:20 Temperature Pulse Rate 107 H 104 H 61 Respiratory Rate 25 H 18 Blood Pressure 125/69 125/69 68/32 L Pulse Oximetry 97 98 03/11/21 23:21 03/11/21 23:24 03/11/21 23:30 Temperature Pulse Rate 65 94 H 89 Respiratory Rate 15 27 H 16 Blood Pressure 78/41 L 93/55 L 96/60 Pulse Oximetry 97 94 94 03/11/21 23:37 03/11/21 23:40 03/11/21 23:50 Temperature Pulse Rate 94 H 93 H Respiratory Rate 15 13 Blood Pressure 68/32 L 104/65 103/68 Pulse Oximetry 97 98 03/12/21 00:00 03/12/21 00:10 03/12/21 00:20 Temperature Pulse Rate 97 H 97 H 101 H Respiratory Rate 20 26 H 27 H Blood Pressure 106/67 104/65 98/65 Pulse Oximetry 98 97 97 03/12/21 00:30 03/12/21 00:40 03/12/21 00:52 Temperature 98.2 F 98.2 F Pulse Rate 100 H 101 H 100 H Respiratory Rate 21 24 18 Blood Pressure 101/59 L 110/65 110/68 Pulse Oximetry 98 97 98 <Ghanshyam Dukes, DO - Last Filed: 03/12/21 01:41> Orders Ordered: Discontinued Medications Atorvastatin Calcium (Atorvastatin 20 Mg Tablet) 80 mg PO NOW ONE Stop: 03/11/21 18:29 Last Admin: 03/11/21 18:37 Dose: 80 mg Documented by: TOREY Heparin Sodium (Porcine) (Heparin 5,000 Unit/Ml Vial) 4,000 unit IV NOW ONE Stop: 03/11/21 18:29 Last Admin: 03/11/21 18:38 Dose: 4,000 unit Documented by: TOREY Heparin Sodium/Dextrose (Heparin Drip) 25,000 unit in 500 mls @ 15.458 mls/hr IV CONT MALLY; Protocol Last Admin: 03/11/21 18:39 Dose: 12 units/kg/hr, 15.458 mls/hr Documented by: TOREY Nitroglycerin (Nitroglycerin 0.4 Mg Sl Tab) 0.4 mg SL [id number] PRN PRN Reason: Chest Pain Last Admin: 03/11/21 23:13 Dose: 0.4 mg Documented by: Admin: 03/11/21 18:41 Dose: 0.4 mg Documented by: TOREY Nitroglycerin (Nitroglycerin 0.4 Mg Sl Tab) 0.4 mg SL NOW ONE Stop: 03/11/21 23:14 Last Admin: 03/11/21 23:31 Dose: Not Given Documented by: MEGAN Nitroglycerin (Nitroglycerin Oint 1 Inch/Gm Oint...G.) 0.5 inch TOP NOW ONE Stop: 03/11/21 23:14 Last Admin: 03/11/21 23:37 Dose: Not Given Documented by: MEGAN Reevaluation(s) Reevaluation #1: Patient pain resolved to 0 after nitro. Reevaluation #2: Called to see patient with return of intense chest pain rising to 7/10. Vital signs are stable. Repeat EKG ordered and nitro ordered. Though she had a very typical and normal response to nitro earlier soon after this toe she became hypotensive in the 60s and became pale, diaphoretic and nauseated. Additionally, she seem to potentially have a vagal response to the nausea as she developed a brief bradycardia into the 30s or 40s. The symptoms resolved within a few minutes and patient returned to her baseline. Consultations Consultation #1: [facility] - no beds. On list [place] - beds. [place] - no beds. [facility] has a bed. Cardiology consultation with investor relations director cards, agrees with need for transfer, requests discussion with hospitalist. Vital Signs Vital signs: Vital Signs - 8 hr 03/11/21 17:40 03/11/21 17:50 03/11/21 18:00 Temperature Pulse Rate 92 H 92 H 91 H Respiratory Rate 26 H 25 H 21 Blood Pressure 108/66 Pulse Oximetry 100 99 99 03/11/21 18:10 03/11/21 18:20 03/11/21 18:30 Temperature Pulse Rate 88 98 H 97 H Respiratory Rate 22 27 H 26 H Blood Pressure 110/87 Pulse Oximetry 100 100 100 03/11/21 18:40 03/11/21 18:41 03/11/21 18:43 Temperature Pulse Rate 96 H 96 H 99 H Respiratory Rate 31 H 39 H Blood Pressure 110/87 118/89 Pulse Oximetry 100 100 03/11/21 18:47 03/11/21 18:50 03/11/21 19:00 Temperature Pulse Rate 114 H 100 H 97 H Respiratory Rate 20 20 19 Blood Pressure 109/58 L 113/57 L 115/60 Pulse Oximetry 98 93 100 03/11/21 19:10 03/11/21 19:20 03/11/21 19:30 Temperature Pulse Rate 95 H 95 H 97 H Respiratory Rate 20 16 18 Blood Pressure 124/63 133/66 113/63 Pulse Oximetry 100 100 100 03/11/21 19:40 03/11/21 19:50 03/11/21 20:00 Temperature Pulse Rate 98 H 100 H 97 H Respiratory Rate 19 24 24 Blood Pressure 103/56 L 113/67 98/62 Pulse Oximetry 99 100 99 03/11/21 20:10 03/11/21 20:20 03/11/21 20:30 Temperature Pulse Rate 100 H 101 H 102 H Respiratory Rate 19 19 Blood Pressure 108/54 L 115/54 L 113/55 L Pulse Oximetry 99 97 98 03/11/21 20:40 03/11/21 20:50 03/11/21 21:00 Temperature Pulse Rate 103 H 107 H 103 H Respiratory Rate 13 Blood Pressure 105/57 L 107/57 L 112/56 L Pulse Oximetry 99 97 98 03/11/21 21:10 03/11/21 21:20 03/11/21 21:30 Temperature Pulse Rate 103 H 101 H 101 H Respiratory Rate 18 16 Blood Pressure 105/56 L 115/53 L 108/55 L Pulse Oximetry 97 97 96 03/11/21 21:40 03/11/21 21:50 03/11/21 22:00 Temperature Pulse Rate 105 H 101 H 105 H Respiratory Rate 20 16 Blood Pressure 102/60 111/62 109/58 L Pulse Oximetry 98 96 98 03/11/21 22:10 03/11/21 22:20 03/11/21 22:30 Temperature Pulse Rate 97 H 96 H 95 H Respiratory Rate 24 26 H Blood Pressure 103/55 L 101/53 L 97/50 L Pulse Oximetry 96 96 94 03/11/21 22:40 03/11/21 22:50 03/11/21 23:00 Temperature Pulse Rate 96 H 96 H 91 H Respiratory Rate 25 H 22 22 Blood Pressure 101/55 L 101/56 L 90/55 L Pulse Oximetry 95 95 95 03/11/21 23:10 03/11/21 23:13 03/11/21 23:20 Temperature Pulse Rate 107 H 104 H 61 Respiratory Rate 25 H 18 Blood Pressure 125/69 125/69 68/32 L Pulse Oximetry 97 98 03/11/21 23:21 03/11/21 23:24 03/11/21 23:30 Temperature Pulse Rate 65 94 H 89 Respiratory Rate 15 27 H 16 Blood Pressure 78/41 L 93/55 L 96/60 Pulse Oximetry 97 94 94 03/11/21 23:37 03/11/21 23:40 03/11/21 23:50 Temperature Pulse Rate 94 H 93 H Respiratory Rate 15 13 Blood Pressure 68/32 L 104/65 103/68 Pulse Oximetry 97 98 03/12/21 00:00 03/12/21 00:10 03/12/21 00:20 Temperature Pulse Rate 97 H 97 H 101 H Respiratory Rate 20 26 H 27 H Blood Pressure 106/67 104/65 98/65 Pulse Oximetry 98 97 97 03/12/21 00:30 03/12/21 00:40 03/12/21 00:52 Temperature 98.2 F 98.2 F Pulse Rate 100 H 101 H 100 H Respiratory Rate 21 24 18 Blood Pressure 101/59 L 110/65 110/68 Pulse Oximetry 98 97 98 MDM - Chest Pain <Sandra Hurst, - Last Filed: 03/13/21 15:00> Lab Data Result diagrams: 03/11/21 16:50 03/11/21 16:50 Labs: Lab Results 03/11/21 03/11/21 03/11/21 Range/Units 16:15 16:50 16:50 WBC 7.7 (4.5-11.0) X10^3/uL RBC 4.21 (4.0-5.2) X10^6/uL Hgb 12.8 (12.0-16.0) g/dL Hct 37.9 (36-46) % MCV 90.1 (80-100) fL MCH 30.4 (26-34) PG MCHC 33.7 (30-36) % RDW 13.3 (11.6-14.8) % Plt Count 175 (150-400) X10^3/uL Neut % (Auto) 76.4 H (50-75) % Lymph % (Auto) 14.0 L (25-40) % Hanson % (Auto) 6.4 (3-14) % Eos % (Auto) 2.8 (2-4) % Baso % (Auto) 0.4 (0-2) % Neut # (Auto) 5900 (9690-8409) /uL Lymph # (Auto) 1100 (8171-9708) /uL Hanson # (Auto) 500 (0-900) /uL Eos # (Auto) 200 (0-450) /uL Baso # (Auto) 0 (0-100) /uL APTT (26.4-36.2) SECONDS D-Dimer (<230) ng/mL Sodium 136 L (137-145) mmol/L Potassium 4.0 (3.4-5.1) mmol/L Chloride 103 (98-107) mmol/L Carbon Dioxide 31 (22-32) mmol/L BUN 10 (7-17) mg/dL Creatinine 0.60 (0.52-1.04) mg/dL Estimated GFR > 60.0 (>60) mL/min BUN/Creatinine Ratio 16.7 (6-22) Glucose 108 (80-110) mg/dL Calcium 8.7 (8.4-10.2) mg/dL Total Bilirubin 0.6 (0.2-1.3) mg/dL AST 32 (14-36) IU/L ALT 23 (<35) IU/L Alkaline Phosphatase 92 (38-126) U/L Total Creatine Kinase 45 (30-135) U/L CK-MB (CK-2) TNP CK-MB (CK-2) Rel Index TNP Troponin I 0.355 H* (0.01-0.034) ng/mL Total Protein 6.9 (6.3-8.2) g/dL Albumin 4.1 (3.5-5.0) g/dL Globulin 2.8 (1.7-4.1) g/dL Albumin/Globulin Ratio 1.5 (1.0-2.8) Lipase 37 (23-300) U/L SARS-CoV-2 (PCR) Negative (Negative) 03/11/21 03/11/21 03/11/21 Range/Units 18:28 18:45 23:30 WBC (4.5-11.0) X10^3/uL RBC (4.0-5.2) X10^6/uL Hgb (12.0-16.0) g/dL Hct (36-46) % MCV (80-100) fL MCH (26-34) PG MCHC (30-36) % RDW (11.6-14.8) % Plt Count (150-400) X10^3/uL Neut % (Auto) (50-75) % Lymph % (Auto) (25-40) % Hanson % (Auto) (3-14) % Eos % (Auto) (2-4) % Baso % (Auto) (0-2) % Neut # (Auto) (5395-1980) /uL Lymph # (Auto) (9511-1156) /uL Hanson # (Auto) (0-900) /uL Eos # (Auto) (0-450) /uL Baso # (Auto) (0-100) /uL APTT (26.4-36.2) SECONDS D-Dimer 284 H (<230) ng/mL Sodium (137-145) mmol/L Potassium (3.4-5.1) mmol/L Chloride (98-107) mmol/L Carbon Dioxide (22-32) mmol/L BUN (7-17) mg/dL Creatinine (0.52-1.04) mg/dL Estimated GFR (>60) mL/min BUN/Creatinine Ratio (6-22) Glucose (80-110) mg/dL Calcium (8.4-10.2) mg/dL Total Bilirubin (0.2-1.3) mg/dL AST (14-36) IU/L ALT (<35) IU/L Alkaline Phosphatase (38-126) U/L Total Creatine Kinase (30-135) U/L CK-MB (CK-2) CK-MB (CK-2) Rel Index Troponin I 0.385 H* (0.01-0.034) ng/mL Total Protein (6.3-8.2) g/dL Albumin (3.5-5.0) g/dL Globulin (1.7-4.1) g/dL Albumin/Globulin Ratio (1.0-2.8) Lipase (23-300) U/L SARS-CoV-2 (PCR) Negative (Negative) 03/11/21 03/12/21 Range/Units 23:30 00:30 WBC (4.5-11.0) X10^3/uL RBC (4.0-5.2) X10^6/uL Hgb (12.0-16.0) g/dL Hct (36-46) % MCV (80-100) fL MCH (26-34) PG MCHC (30-36) % RDW (11.6-14.8) % Plt Count (150-400) X10^3/uL Neut % (Auto) (50-75) % Lymph % (Auto) (25-40) % Hanson % (Auto) (3-14) % Eos % (Auto) (2-4) % Baso % (Auto) (0-2) % Neut # (Auto) (7833-6319) /uL Lymph # (Auto) (4088-4062) /uL Hanson # (Auto) (0-900) /uL Eos # (Auto) (0-450) /uL Baso # (Auto) (0-100) /uL APTT 53 H (26.4-36.2) SECONDS D-Dimer (<230) ng/mL Sodium (137-145) mmol/L Potassium (3.4-5.1) mmol/L Chloride (98-107) mmol/L Carbon Dioxide (22-32) mmol/L BUN (7-17) mg/dL Creatinine (0.52-1.04) mg/dL Estimated GFR (>60) mL/min BUN/Creatinine Ratio (6-22) Glucose (80-110) mg/dL Calcium (8.4-10.2) mg/dL Total Bilirubin (0.2-1.3) mg/dL AST (14-36) IU/L ALT (<35) IU/L Alkaline Phosphatase (38-126) U/L Total Creatine Kinase (30-135) U/L CK-MB (CK-2) CK-MB (CK-2) Rel Index Troponin I 0.340 H* (0.01-0.034) ng/mL Total Protein (6.3-8.2) g/dL Albumin (3.5-5.0) g/dL Globulin (1.7-4.1) g/dL Albumin/Globulin Ratio (1.0-2.8) Lipase (23-300) U/L SARS-CoV-2 (PCR) (Negative) <Ghanshyam Dukes, DO - Last Filed: 03/12/21 01:41> Lab Data Labs: Lab Results 03/11/21 03/11/21 03/11/21 Range/Units 16:15 16:50 16:50 WBC 7.7 (4.5-11.0) X10^3/uL RBC 4.21 (4.0-5.2) X10^6/uL Hgb 12.8 (12.0-16.0) g/dL Hct 37.9 (36-46) % MCV 90.1 (80-100) fL MCH 30.4 (26-34) PG MCHC 33.7 (30-36) % RDW 13.3 (11.6-14.8) % Plt Count 175 (150-400) X10^3/uL Neut % (Auto) 76.4 H (50-75) % Lymph % (Auto) 14.0 L (25-40) % Hanson % (Auto) 6.4 (3-14) % Eos % (Auto) 2.8 (2-4) % Baso % (Auto) 0.4 (0-2) % Neut # (Auto) 5900 (5552-6862) /uL Lymph # (Auto) 1100 (8155-9603) /uL Hanson # (Auto) 500 (0-900) /uL Eos # (Auto) 200 (0-450) /uL Baso # (Auto) 0 (0-100) /uL APTT (26.4-36.2) SECONDS D-Dimer (<230) ng/mL Sodium 136 L (137-145) mmol/L Potassium 4.0 (3.4-5.1) mmol/L Chloride 103 (98-107) mmol/L Carbon Dioxide 31 (22-32) mmol/L BUN 10 (7-17) mg/dL Creatinine 0.60 (0.52-1.04) mg/dL Estimated GFR > 60.0 (>60) mL/min BUN/Creatinine Ratio 16.7 (6-22) Glucose 108 (80-110) mg/dL Calcium 8.7 (8.4-10.2) mg/dL Total Bilirubin 0.6 (0.2-1.3) mg/dL AST 32 (14-36) IU/L ALT 23 (<35) IU/L Alkaline Phosphatase 92 (38-126) U/L Total Creatine Kinase 45 (30-135) U/L CK-MB (CK-2) TNP CK-MB (CK-2) Rel Index TNP Troponin I 0.355 H* (0.01-0.034) ng/mL Total Protein 6.9 (6.3-8.2) g/dL Albumin 4.1 (3.5-5.0) g/dL Globulin 2.8 (1.7-4.1) g/dL Albumin/Globulin Ratio 1.5 (1.0-2.8) Lipase 37 (23-300) U/L SARS-CoV-2 (PCR) Negative (Negative) 03/11/21 03/11/21 03/11/21 Range/Units 18:28 18:45 23:30 WBC (4.5-11.0) X10^3/uL RBC (4.0-5.2) X10^6/uL Hgb (12.0-16.0) g/dL Hct (36-46) % MCV (80-100) fL MCH (26-34) PG MCHC (30-36) % RDW (11.6-14.8) % Plt Count (150-400) X10^3/uL Neut % (Auto) (50-75) % Lymph % (Auto) (25-40) % Hanson % (Auto) (3-14) % Eos % (Auto) (2-4) % Baso % (Auto) (0-2) % Neut # (Auto) (7826-1718) /uL Lymph # (Auto) (8151-5565) /uL Hanson # (Auto) (0-900) /uL Eos # (Auto) (0-450) /uL Baso # (Auto) (0-100) /uL APTT (26.4-36.2) SECONDS D-Dimer 284 H (<230) ng/mL Sodium (137-145) mmol/L Potassium (3.4-5.1) mmol/L Chloride (98-107) mmol/L Carbon Dioxide (22-32) mmol/L BUN (7-17) mg/dL Creatinine (0.52-1.04) mg/dL Estimated GFR (>60) mL/min BUN/Creatinine Ratio (6-22) Glucose (80-110) mg/dL Calcium (8.4-10.2) mg/dL Total Bilirubin (0.2-1.3) mg/dL AST (14-36) IU/L ALT (<35) IU/L Alkaline Phosphatase (38-126) U/L Total Creatine Kinase (30-135) U/L CK-MB (CK-2) CK-MB (CK-2) Rel Index Troponin I 0.385 H* (0.01-0.034) ng/mL Total Protein (6.3-8.2) g/dL Albumin (3.5-5.0) g/dL Globulin (1.7-4.1) g/dL Albumin/Globulin Ratio (1.0-2.8) Lipase (23-300) U/L SARS-CoV-2 (PCR) Negative (Negative) 03/11/21 03/12/21 Range/Units 23:30 00:30 WBC (4.5-11.0) X10^3/uL RBC (4.0-5.2) X10^6/uL Hgb (12.0-16.0) g/dL Hct (36-46) % MCV (80-100) fL MCH (26-34) PG MCHC (30-36) % RDW (11.6-14.8) % Plt Count (150-400) X10^3/uL Neut % (Auto) (50-75) % Lymph % (Auto) (25-40) % Hanson % (Auto) (3-14) % Eos % (Auto) (2-4) % Baso % (Auto) (0-2) % Neut # (Auto) (9460-8783) /uL Lymph # (Auto) (8283-5194) /uL Hanson # (Auto) (0-900) /uL Eos # (Auto) (0-450) /uL Baso # (Auto) (0-100) /uL APTT 53 H (26.4-36.2) SECONDS D-Dimer (<230) ng/mL Sodium (137-145) mmol/L Potassium (3.4-5.1) mmol/L Chloride (98-107) mmol/L Carbon Dioxide (22-32) mmol/L BUN (7-17) mg/dL Creatinine (0.52-1.04) mg/dL Estimated GFR (>60) mL/min BUN/Creatinine Ratio (6-22) Glucose (80-110) mg/dL Calcium (8.4-10.2) mg/dL Total Bilirubin (0.2-1.3) mg/dL AST (14-36) IU/L ALT (<35) IU/L Alkaline Phosphatase (38-126) U/L Total Creatine Kinase (30-135) U/L CK-MB (CK-2) CK-MB (CK-2) Rel Index Troponin I 0.340 H* (0.01-0.034) ng/mL Total Protein (6.3-8.2) g/dL Albumin (3.5-5.0) g/dL Globulin (1.7-4.1) g/dL Albumin/Globulin Ratio (1.0-2.8) Lipase (23-300) U/L SARS-CoV-2 (PCR) (Negative) <Ghanshyam Dukes DO - Last Filed: 03/12/21 01:41> Critical Care Time Attestation: The high probability of a clinically significant, sudden or life threatening deterioration of the [CV] system(s) required my full and direct attention, intervention and personal management. The aggregate critical care time was [45] minutes. This time is in addition to time spent performing reported procedures but includes the following: [x] Data Review and interpretation [x] Patient assessment and monitoring of vital signs [x] Documentation [x] Medication orders and management Discharge Plan Departure Patient Disposition: [facility] Clinical Impression: Acute non-ST elevation myocardial infarction (NSTEMI) Prescriptions: No Action levothyroxine 25 mcg Tablet 25 mcg PO DAILY RF: 0 Qvar RediHaler 80 mcg/actuation HFA aerosol breath activated 2 inh inhalation BID RF: 0 levalbuterol tartrate 45 mcg/actuation HFA aerosol inhaler 2 inh inhalation ONCE PRNRF: 0 nitroglycerin 0.4 mg tablet, sublingual 0.4 mg sublingual Q5-15M PRN (Reason: chest pain) Qty: 20 RF: 1 Referrals: Tawanna Blackman PA-C [Primary Care Provider] - ED Sign-out <Sandra Hurst DO - Last Filed: 03/13/21 15:00> Cosign ED Attending Freedom[employer] Attestation: Patient was not seen by myself. Patient was accidentally opened under my name.
[2021-03-11 17:16] LABS: Alanine Aminotransferase 23 IU/L (<35); Albumin 4.1 g/dL (3.5-5.0); Albumin Globulin Ratio 1.5 (1.0-2.8); Alkaline Phosphatase 92 U/L (38-126); Aspartate Aminotransferase 32 IU/L (14-36); BUN Creatinine Ratio 16.7 (6-22); Bilirubin Total 0.6 mg/dL (0.2-1.3); Blood Urea Nitrogen 10 mg/dL (7-17); Calcium 8.7 mg/dL (8.4-10.2); Carbon Dioxide 31 mmol/L (22-32); Chloride 103 mmol/L (98-107); Creatine Kinase 45 U/L (30-135); Estimated Glomerular Filt Rate > 60.0 mL/min (>60); Globulin 2.8 g/dL (1.7-4.1); Glucose 108 mg/dL (80-110); HEMOLYSIS < 15 (0-50); Lipase 37 U/L (23-300); Sodium 136 mmol/L (137-145); Total Protein 6.9 g/dL (6.3-8.2)
[2021-03-11 18:01] LABS: Troponin I 0.355 ng/mL (0.01-0.034)
[2021-03-11] MEDS: ATORVASTATIN 20 MG TABLET 80 MG PO (18:37)
[2021-03-11] MEDS: HEPARIN 5,000 UNIT/ML VIAL 4000 UNIT IV (18:38)
[2021-03-11] MEDS: HEPARIN DRIP 25,000 UNIT/500 ML IV.SOLN 15.458 UNIT IV (18:39)
[2021-03-11] MEDS: NITROGLYCERIN 0.4 MG SL TAB SL ×2 (18:41→23:13)
[2021-03-11 19:28] LABS: Troponin I 0.385 ng/mL (0.01-0.034)
[2021-03-11 19:37] LABS: COVID19 - ADMIT (NP swab/PCR) Negative (Negative)
--- NOTE | 2021-03-11 23:34 | PC.NURSE ---
Patient had hypotension and bradycardia after a dose of SL nitroglycerin; new piv started and MIVF given; pt recovered quickly to normotension and regular heartrate.
[2021-03-11 23:55] LABS: D Dimer 284 ng/mL (<230)
[2021-03-12] VITALS: BP 106/67; PULSE 97; RESP 20; O2SAT 98
[2021-03-12 00:10] VITALS: BP 104/65; PULSE 97; RESP 26; O2SAT 97
[2021-03-12 00:20] VITALS: BP 98/65; PULSE 101; RESP 27; O2SAT 97
[2021-03-12 00:30] VITALS: BP 101/59; PULSE 100; RESP 21; O2SAT 98
[2021-03-12 00:40] VITALS: BP 110/65; PULSE 101; RESP 24; TEMP 36.8; O2SAT 97
[2021-03-12 00:47] LABS: PTT Partial Thromboplastin Tim 53 SECONDS (26.4-36.2)
[2021-03-12 00:52] VITALS: BP 110/68; PULSE 100; RESP 18; TEMP 36.8; O2SAT 98
--- NOTE | 2021-03-19 01:07 | PC.NURSE ---
Late entry: 1900- Heparin gtt continues to infuse at this time. Handoff report given to ARISTIDES Hackett.
== END 2021-03-12 00:55 | disposition short-term general hospital (02) ==
PROVIDERS: Emergency Medicine; Emergency Provider Emergency Medicine; Family Provider Family Medicine; PCP Physician Assistant
DX: I21.4 Non-ST elevation (NSTEMI) myocardial infarction (principal); R07.9 Chest pain, unspecified; F41.9 Anxiety disorder, unspecified; Z20.822 Contact with and (suspected) exposure to COVID-19
CPT/HCPCS: 36415; 71045; 80053; 82550; 83690; 84484; 85025; 85379; 85730; 87635; 93005; 93010; 96365; 99284; 99291; C9803; J1644

== ENCOUNTER → 2021-05-27 09:17 | Outpatient (CLI) | payer OTHER, SELFPAY ==
[2021-05-27 20:01] LABS: COVID19 - ORCAS (NP or Nasal) Negative (Negative)
== END ==
PROVIDERS: Family Provider Family Medicine; PCP Physician Assistant; Visit Provider Physician Assistant Medical
DX: Z20.822 Contact with and (suspected) exposure to COVID-19 (principal)
CPT/HCPCS: U0003

== ENCOUNTER → 2021-06-01 10:31 | Outpatient (CLI) | payer OTHER, SELFPAY ==
[2021-06-01 20:50] LABS: COVID19 - ORCAS (NP or Nasal) Negative (Negative)
== END ==
PROVIDERS: Family Provider Family Medicine; PCP Physician Assistant; Referring Provider Physician Assistant; Visit Provider Physician Assistant
DX: Z20.822 Contact with and (suspected) exposure to COVID-19 (principal)
CPT/HCPCS: U0003

== ENCOUNTER → 2021-06-07 12:16 | Outpatient (CLI) | payer OTHER, SELFPAY ==
[2021-06-07 19:34] LABS: BUN Creatinine Ratio 18.5 (6-22); Blood Urea Nitrogen 12 mg/dL (7-17); Carbon Dioxide 32 mmol/L (22-32); Chloride 101 mmol/L (98-107); Cholesterol 118 mg/dL (140-199); Estimated Glomerular Filt Rate > 60.0 mL/min (>60); Glucose 94 mg/dL (80-110); HDL Cholesterol 85 mg/dL (40-60); HEMOLYSIS < 15 (0-50); LDL Cholesterol Calculated 24 mg/dL (<100); Potassium 3.7 mmol/L (3.4-5.1); Sodium 136 mmol/L (137-145); Triglycerides 43 mg/dL (35-150)
[2021-06-07 20:03] LABS: LDL Cholesterol Direct < 30 mg/dL (<100)
== END ==
PROVIDERS: Family Provider Family Medicine; PCP Physician Assistant; Visit Provider Family Medicine
DX: I50.21 Acute systolic (congestive) heart failure (principal)
CPT/HCPCS: 80048; 80061; 83721

== ENCOUNTER → 2021-09-20 10:51 | Outpatient (CLI) | payer OTHER, SELFPAY ==
[2021-09-20 19:00] LABS: Add Manual Diff / Slide Review NO; Basophils Absolute Auto 0 /uL (0-100); Basophils Percent Auto 0.5 % (0-2); Eosinophils Absolute Auto 100 /uL (0-450); Eosinophils Percent Auto 1.9 % (2-4); Hematocrit 41.9 % (36-46); Lymphocytes Absolute Auto 1900 /uL (1100-4500); Lymphocytes Percent Auto 33.9 % (25-40); Mean Corpuscular HGB Conc 33.4 % (30-36); Mean Corpuscular Hemoglobin 29.6 PG (26-34); Mean Corpuscular Volume 88.5 fL (80-100); Monocytes Absolute Auto 400 /uL (0-900); Monocytes Percent Auto 7.5 % (3-14); Neutrophils Absolute Auto 3200 /uL (1500-7000); Neutrophils Percent Auto 56.2 % (50-75); Platelet Count 236 X10^3/uL (150-400); Red Blood Cell Count 4.73 X10^6/uL (4.0-5.2); White Blood Cell Count 5.7 X10^3/uL (4.5-11.0)
[2021-09-20 19:09] LABS: Alanine Aminotransferase 19 IU/L (<35); Albumin 4.1 g/dL (3.5-5.0); Albumin Globulin Ratio 1.6 (1.0-2.8); Alkaline Phosphatase 84 U/L (38-126); Aspartate Aminotransferase 27 IU/L (14-36); BUN Creatinine Ratio 17.7 (6-22); Bilirubin Total 0.6 mg/dL (0.2-1.3); Blood Urea Nitrogen 11 mg/dL (7-17); Calcium 9.2 mg/dL (8.4-10.2); Carbon Dioxide 31 mmol/L (22-32); Chloride 99 mmol/L (98-107); Estimated Glomerular Filt Rate > 60.0 mL/min (>60); Globulin 2.6 g/dL (1.7-4.1); Glucose 100 mg/dL (80-110); HEMOLYSIS < 15 (0-50); Potassium 4.8 mmol/L (3.4-5.1); Sodium 136 mmol/L (137-145); Total Protein 6.7 g/dL (6.3-8.2)
[2021-09-20 19:27] LABS: Free T4, Direct Thyroxine 1.38 ng/dL (0.78-2.19)
[2021-09-20 19:41] LABS: Thyroid Stimulating Hormone 1.41 uIU/mL (0.47-4.68)
== END ==
PROVIDERS: Family Provider Family Medicine; PCP Family Medicine; Visit Provider Family Medicine
DX: E03.9 Hypothyroidism, unspecified (principal); I21.4 Non-ST elevation (NSTEMI) myocardial infarction; R05.9 Cough, unspecified
CPT/HCPCS: 80053; 84439; 84443; 85025

== ENCOUNTER → 2022-03-06 09:39 | Outpatient (CLI) | payer OTHER, SELFPAY ==
[2022-03-06 19:48] LABS: Hemoglobin 12.8 g/dL (12.0-16.0); Mean Corpuscular HGB Conc 34.5 % (30-36); Mean Corpuscular Volume 89.6 fL (80-100); Platelet Count 175 X10^3/uL (150-400); Red Blood Cell Count 4.12 X10^6/uL (4.0-5.2); Red Cell Distribution Width 13.1 % (11.6-14.8); White Blood Cell Count 4.5 X10^3/uL (4.5-11.0)
[2022-03-06 19:51] LABS: Add Manual Diff / Slide Review YES
[2022-03-06 19:56] LABS: Alanine Aminotransferase 21 IU/L (<35); Albumin 4.1 g/dL (3.5-5.0); Albumin Globulin Ratio 1.6 (1.0-2.8); Alkaline Phosphatase 60 U/L (38-126); Aspartate Aminotransferase 29 IU/L (14-36); BUN Creatinine Ratio 20.9 (6-22); Bilirubin Total 0.9 mg/dL (0.2-1.3); Blood Urea Nitrogen 14 mg/dL (7-17); Calcium 8.6 mg/dL (8.4-10.2); Carbon Dioxide 29 mmol/L (22-32); Chloride 100 mmol/L (98-107); Cholesterol 126 mg/dL (140-199); Estimated Glomerular Filt Rate > 60 mL/min (>60); Globulin 2.6 g/dL (1.7-4.1); Glucose 96 mg/dL (80-110); HDL Cholesterol 79 mg/dL (40-60); HEMOLYSIS < 15 (0-50); LDL Cholesterol Calculated 38 mg/dL (<100); Potassium 4.1 mmol/L (3.4-5.1); Sodium 135 mmol/L (137-145); Total Protein 6.7 g/dL (6.3-8.2); Triglycerides 47 mg/dL (35-150)
[2022-03-06 20:17] LABS: Neutrophils Absolute Manual 1710 /uL (3000-5900); RBC Morphology Normal Morphology; Total Cells Counted 100
[2022-03-06 20:20] LABS: Free T4, Direct Thyroxine 1.17 ng/dL (0.78-2.19)
[2022-03-06 20:34] LABS: Thyroid Stimulating Hormone 1.95 uIU/mL (0.47-4.68)
== END ==
PROVIDERS: Family Provider Family Medicine; PCP Family Medicine; Visit Provider Family Medicine
DX: E03.9 Hypothyroidism, unspecified (principal); E78.5 Hyperlipidemia, unspecified; I10 Essential (primary) hypertension
CPT/HCPCS: 80053; 80061; 84439; 84443; 85007; 85025

== ENCOUNTER → 2022-09-22 | Outpatient (CLI) | payer OTHER, SELFPAY ==
--- NOTE | 2022-09-22 12:52 | DI.RAD.S_ITS ---
Bone Density Report Name: CLYDE DAMIAN Age: 62 Sex: Female Ethnicity: White Date of : 1960 Indication: postmenopausal osteoporosis; Referring Provider: PHI KWONG Study: Bone densitometry was performed. Exam Date: September 22, 2022 Accession number: [id number] Bone Density: Region BMD T-score Z-score Classification AP Spine(L1, L2, L4) 0.746 -2.6 -1.0 Osteoporosis Femoral Neck (Left) 0.660 -1.7 -0.3 Osteopenia Total Hip (Left) 0.772 -1.4 -0.3 Osteopenia Femoral Neck (Right) 0.723 -1.1 0.3 Osteopenia Total Hip (Right) 0.778 -1.3 -0.2 Osteopenia Total Hip Mean 0.775 -1.4 -0.3 Osteopenia World Health Organization criteria for BMD impression classify patients as: Normal (T-score at or above -1.0), Osteopenia (T-score between -1.0 and -2.5), or Osteoporosis (T-score at or below -2.5). 10-year Fracture Risk: FRAX not reported because: Some T-score for Spine Total or Hip Total or Femoral Neck at or below -2.5 Previous Exams: -- Region Exam Age BMD T-score BMD Change BMD Change Date g/cm2 vs Baseline vs Previous -- AP Spine (L1-L2,L4) 09/22/2022 62 0.746 -2.6 -0.003 (-0.4%)# -0.003 (-0.4%)# 03/17/2016 55 0.749 -2.6 Total Hip(Left) 09/22/2022 62 0.772 -1.4 -0.019 (-2.4%)# -0.019 (-2.4%)# 03/17/2016 55 0.791 -1.2 Total Hip(Right) 09/22/2022 62 0.778 -1.3 -0.045 (-5.5%)# -0.045 (-5.5%)# 03/17/2016 55 0.823 -1.0 -- *Denotes significance at 95% confidence level, LSC for AP Spine = 0.022 g/cm2, LSC for Total Hip = 0.027 g/cm2 # Denotes dissimilar scan types or analysis methods Impression: The patient has osteoporosis, based on the Total Spine T-score. No significant bone loss was observed. Discussion: INCREASED RISK OF FRACTURE. BONE DENSITY IS UNDESIRABLY LOW AT ONE OR MORE SKELETAL SITES, CONSISTENT WITH POSTMENOPAUSAL OSTEOPOROSIS. This patient's lowest T-score meets the World Health Organization's (WHO) criteria for osteoporosis at one or more sites (T-score -2.5 or below). In untreated patients, the risk of osteoporotic fracture increases approximately two-fold for each 1.0 SD decrease in T-score. Low bone density is not the only risk factor for fracture; also consider factors such as patient's age, frailty or poor health, risk of falling, risk of injury, previous osteoporotic fracture, family history of osteoporosis, cigarette smoking, low body weight, etc. Not everyone with low bone mineral density has osteoporosis; osteomalacia and other metabolic bone disorders should also be considered. Patients who have osteoporosis should be evaluated for specific diseases and conditions (secondary causes) that may cause or contribute to bone loss. The [place] [employer]ocrinologists (AACE) and National Osteoporosis Foundation (NOF) recommend pharmacologic intervention for all postmenopausal women whose T-score is in this range. The patient should follow a healthful lifestyle (good nutrition with adequate calcium and vitamin D, and appropriate weight-bearing exercise). Follow-Up: Consider a repeat BMD and Vertebral Fracture Assessment (VFA) exam in 2 years or sooner if medically necessary, to reassess this patient's status. Reported by: SELMA GREEN M.D. on 09/22/2022 1:33:00 PM.
== END ==
LOC: RAD 12:51
PROVIDERS: Family Provider Family Medicine; PCP Family Medicine; Referring Provider Family Medicine; Visit Provider Family Medicine
DX: M81.0 Age-related osteoporosis without current pathological fracture (principal); E21.3 Hyperparathyroidism, unspecified; Z78.0 Asymptomatic menopausal state
CPT/HCPCS: 77080

== ENCOUNTER → 2023-02-05 10:18 | Outpatient (CLI) | payer OTHER, SELFPAY ==
[2023-02-05 21:36] LABS: Hematocrit 37.1 % (36-46); Hemoglobin 12.9 g/dL (12.0-16.0); Mean Corpuscular HGB Conc 34.8 % (30-36); Mean Corpuscular Hemoglobin 30.8 PG (26-34); Mean Corpuscular Volume 88.5 fL (80-100); Platelet Count 164 X10^3/uL (150-400); Red Blood Cell Count 4.19 X10^6/uL (4.0-5.2); Red Cell Distribution Width 13.5 % (11.6-14.8); White Blood Cell Count 5.5 X10^3/uL (4.5-11.0)
[2023-02-05 22:09] LABS: Neutrophils Absolute Manual 3025 /uL (3000-5900); Total Cells Counted 100
[2023-02-05 22:10] LABS: RBC Morphology Normal Morphology
[2023-02-05 22:13] LABS: Alanine Aminotransferase 25 IU/L (<35); Albumin Globulin Ratio 1.6 (1.0-2.8); Alkaline Phosphatase 71 U/L (38-126); Aspartate Aminotransferase 32 IU/L (14-36); BUN Creatinine Ratio 17.6 (6-22); Bilirubin Total 0.6 mg/dL (0.2-1.3); Blood Urea Nitrogen 12 mg/dL (7-17); Calcium 8.7 mg/dL (8.4-10.2); Carbon Dioxide 29 mmol/L (22-32); Chloride 96 mmol/L (98-107); Cholesterol 133 mg/dL (140-199); Estimated Glomerular Filt Rate > 60 mL/min (>60); Globulin 2.5 g/dL (1.7-4.1); Glucose 92 mg/dL (80-110); HDL Cholesterol 95 mg/dL (40-60); HEMOLYSIS < 15 (0-50); LDL Cholesterol Calculated 28 mg/dL (<100); Potassium 3.8 mmol/L (3.4-5.1); Sodium 132 mmol/L (137-145); Total Protein 6.5 g/dL (6.3-8.2); Triglycerides 52 mg/dL (35-150)
[2023-02-05 22:43] LABS: Thyroid Stimulating Hormone 2.42 uIU/mL (0.47-4.68)
[2023-02-06 22:53] LABS: Labcorp Hemoglobin (Hb) A1c 5.3 % (4.8-5.6)
== END ==
PROVIDERS: Family Provider Family Medicine; PCP Family Medicine; Visit Provider Family Medicine
DX: B35.1 Tinea unguium (principal); D72.821 Monocytosis (symptomatic); E03.9 Hypothyroidism, unspecified; E78.5 Hyperlipidemia, unspecified; H53.8 Other visual disturbances; I10 Essential (primary) hypertension; I21.4 Non-ST elevation (NSTEMI) myocardial infarction; R42 Dizziness and giddiness
CPT/HCPCS: 80053; 80061; 83036; 84443; 85025

== ENCOUNTER 2023-02-15 16:06 | Observation (INO) | payer OTHER, SELFPAY ==
[2023-02-15] VITALS (13 sets, daily range): BP systolic 103–153; BP diastolic 54–74; PULSE 51–65; RESP 13–23; TEMP 36.2–36.6; O2SAT 95–100; BMI 29.2; BMI 29.1
--- NOTE | 2023-02-15 16:24 | DI.CT.S_ITS ---
PROCEDURE: CT HEAD/BRAIN WO CON INDICATIONS: VISION LOSS L EYE TECHNIQUE: Noncontrast 4.5 mm thick angled axial sections acquired from the foramen magnum to the vertex, with coronal and sagittal reformats. For radiation dose reduction, the following was used: automated exposure control, adjustment of mA and/or kV according to patient size. COMPARISON: None. FINDINGS: Image quality: Excellent. CSF spaces: Basal cisterns are patent. No extra-axial fluid collections. Ventricles are normal in size and shape. Brain: No midline shift. No intracranial masses or hemorrhage. Huynh-white matter interface is normal. Skull and face: Calvarium and visualized facial bones are intact, without suspicious lesions. Sinuses: Visualized sinuses and mastoids are clear. IMPRESSION: Normal CT of the brain Approved by: Oswaldo Parmar M.D. on 02/15/2023 at 16:00
--- NOTE | 2023-02-15 16:24 | DI.CT.S_ITS ---
PROCEDURE: CT ANGIO HEAD AND NECK INDICATIONS: VISION LOSS L EYE TECHNIQUE: After the administration of intravenous contrast, 1 mm thick sections acquired from the aortic arch through the [place]. MIP reformats of the arterial vasculature were utilized. For radiation dose reduction, the following was used: automated exposure control, adjustment of mA and/or kV according to patient size. COMPARISON: None. FINDINGS: HEAD CT ANGIOGRAPHY: Anterior circulation: Intracranial internal carotid arteries are normal in size and flow. The flow within the paired anterior cerebral arteries is normal and symmetric. The flow within the middle cerebral arteries is normal and symmetric. The anterior communicating artery is seen. No aneurysms are seen. Posterior circulation: Visualized portions of the vertebral arteries demonstrate normal caliber, and join to form a normal appearing basilar artery. 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 The P2 segment is supplied by a widely patent posterior communicating artery. Remainder of the distal vasculature unremarkable. Flow within the posterior cerebral arteries is normal and symmetric. No aneurysms are seen. NECK CT ANGIOGRAPHY: Carotid system: The great vessels demonstrate a conventional anatomy as they arise from the aortic arch. The origins of the common carotid arteries appear patent. The common carotid arteries demonstrate normal caliber and courses. The bifurcation regions are both widely patent. The internal carotid arteries demonstrate normal calibers and courses. Posterior circulation: The origins of the vertebral arteries both appear widely patent. The more superior extracranial portions of both vertebral arteries also demonstrate normal courses and calibers. They join to form a normal appearing basilar artery. Soft tissues: Visualized neck soft tissues demonstrate no suspicious abnormalities. Ground-glass density in the lung apices may reflect vascular congestion or pneumonitis Bones: No suspicious bony lesions. Visualized cervical spine appears normally aligned. C4-5 and C5-6 discectomy and fusion with anterior plate and screw hardware in good position. IMPRESSION: Normal CT angiogram of the head and neck. No evidence of large vessel occlusion, stenosis aneurysm or vascular malformation. Multilevel degenerative disc disease and arthropathy in the cervical spine associated with instrumented C4-5 and C5-6 discectomy and fusion Any quantitative measurements of stenosis were performed using NASCET criteria. Approved by: Oswaldo Parmar M.D. on 02/15/2023 at 16:18
--- NOTE | 2023-02-15 16:30 | ED_ITS ---
HPI - Neuro Symptoms/Deficit General Chief Complaint: Neuro Symptoms/Deficit Stated Complaint: Loss of vision Time Seen by Provider: 02/15/23 16:20 Source: patient Mode of arrival: Ambulatory History of Present Illness HPI Narrative: 62-year-old female presents by private vehicle from home for 2 weeks of intermittent transient vision loss in the left eye. Patient states that 2 weeks ago she had complete vision loss in her left eye, which resolved after a short time. Last night she had another episode and today she followed up with her eye doctor. The eye doctor did a dilated exam, which did not show any abnormalities to explain her symptoms and referred her to the emergency department for stroke workup. On Anticoagulants: No Related Data Home Medications Medication Instructions Recorded Confirmed beclomethasone dipropionate 80 2 inh inhalation BID 03/01/21 10/06/22 mcg/actuation HFA breath activated aerosol (Qvar RediHaler) aspirin 81 mg tablet,delayed 81 mg PO DAILY 01/19/23 01/19/23 release (Adult Low Dose Aspirin) Previous Rx's Medication Instructions Recorded nitroglycerin 0.4 mg sublingual 0.4 mg sublingual Q5-15M PRN chest 03/11/21 tablet pain #20 tabs atorvastatin 10 mg tablet 20 mg PO BEDTIME #90 tabs 03/30/22 metoprolol succinate 50 mg 50 mg PO DAILY #90 tabs 06/06/22 tablet,extended release 24 hr levalbuterol tartrate 45 See Rx Instructions .Route 09/14/22 mcg/actuation aerosol inhaler .COMPLEX #15 grams trazodone 50 mg tablet See Rx Instructions .Route 12/17/22 .COMPLEX #90 tabs efinaconazole 10 % topical 1 applic topical DAILY #8 mL 01/19/23 solution with applicator levothyroxine 25 mcg tablet 25 mcg PO DAILY #90 tabs 01/29/23 Allergies Allergy/AdvReac Type Severity Reaction Status Date / Time Penicillins [PENICILLINS] Allergy Intermediate STOMACH Verified 01/19/23 08:29 PAIN Sulfa (Sulfonamide Allergy Mild STOMACH Verified 01/19/23 08:29 Antibiotics) PAIN [SULFA (SULFONAMIDE ANTIBIOTICS)] albuterol Allergy Unknown Palpitation Verified 01/19/23 08:29 s calamine Allergy Unknown Verified 01/19/23 08:29 carbamazepine Allergy Unknown Verified 01/19/23 08:29 codeine Allergy Unknown Verified 01/19/23 08:29 diphenhydramine Allergy Unknown Verified 01/19/23 08:29 [From Benadryl] epinephrine Allergy Unknown Verified 01/19/23 08:29 glucosamine Allergy Unknown Verified 01/19/23 08:29 Review of Systems Review of Systems Narrative: CONSTITUTIONAL- Denies: fever, chills, HEENT-reports: Vision changes Denies: sore throat, nosebleed RESPIRATORY- Denies: shortness of breath, cough, wheezing CARDIAC- Denies: chest pain, edema, orthopnea GI- Denies: abdominal pain, nausea, vomiting, constipation, diarrhea - Denies: frequency, dysuria, hematuria, flank pain MSK- Denies: extremity pain, extremity swelling, joint pain, joint swelling SKIN- Denies: rash, itching, burn, swelling NEUROLOGICAL- Denies: headache, numbness, weakness, dizziness PSYCHIATRIC- Denies: anxiety, depression, suicidal ideation, homicidal ideation Hematologic/Lymphatic On Anticoagulants: No Patient History Medical History (Updated 02/15/23 @ 18:42 by Sandra Hu MD) Bronchitis Carpal tunnel syndrome Cerumen impaction Chest pain Hyperlipidemia Hypertension Hypothyroid Insomnia Pericarditis Personal history of pneumonia Social History Smoking Status: Never smoker Smoking Status: Never smoker alcohol intake frequency: 0-2 drinks per day Substance Use Type: does not use Exam Narrative Exam Narrative: Const: Well-nourished, Well-developed, appears stated age Eyes: PERRL, EOMI, conjunctiva normal, vision grossly normal for patient ENT: Atraumatic, dentition normal, mucous membranes moist Cardiac: regular rate, regular rhythm RESP: unlabored, clear bilaterally, no wheezing GI: Atraumatic, soft, nontender, nondistended, no rebound, no guarding MSK: Atraumatic, full range of motion, pulses equal Skin: Warm, Dry, intact, no rashes Neuro: AO x3, CN II-XII grossly intact, moves all extremities Psych: affect normal, mood normal, not suicidal, not homicidal Initial Vital Signs Initial Vital Signs: Vital Signs Temperature 98 F 02/15/23 16:09 Pulse Rate 65 02/15/23 16:09 Respiratory Rate 18 02/15/23 16:09 Blood Pressure 145/67 H 02/15/23 16:09 Pulse Oximetry 100 02/15/23 16:09 Oxygen Delivery Method Room Air 02/15/23 16:09 Course Course Course Narrative: Intermittent transient vision loss, 1st episode 2 weeks ago. 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 Orders Ordered: ED Orders 02/15/23 16:24 CT angio head and neck Stat CT head/brain wo con Stat 02/15/23 16:25 CBC Auto Diff [Complete Blood Count AUTO DIFF] Stat CMP [Comprehensive Metabolic Panel] Stat PT [Prothrombin Time INR] Stat PTT Partial Thromboplastin Celestino Stat 02/15/23 16:27 EKG-12 Lead Stat Reevaluation(s) Reevaluation #1: Laboratory work and imaging reviewed, CT angio negative for acute findings. Patient to be admitted for stroke workup. Vital Signs Vital signs: Vital Signs - 8 hr 02/15/23 16:09 02/15/23 16:48 02/15/23 17:00 Temperature 98 F Pulse Rate 65 61 Respiratory Rate 18 20 Blood Pressure 145/67 H 140/67 Pulse Oximetry 100 98 Oxygen Delivery Method Room Air 02/15/23 17:00 02/15/23 17:30 02/15/23 17:30 Temperature Pulse Rate 54 L 53 L Respiratory Rate 17 16 Blood Pressure 123/62 Pulse Oximetry 100 99 Oxygen Delivery Method MDM - Neuro Symptoms/Deficit Lab Data 02/15/23 16:25 02/15/23 16:25 Labs: Lab Results 02/15/23 02/15/23 02/15/23 Range/Units 16:25 16:25 16:25 WBC 5.6 (4.5-11.0) X10^3/uL RBC 4.22 (4.0-5.2) X10^6/uL Hgb 13.0 (12.0-16.0) g/dL Hct 37.5 (36-46) % MCV 88.8 (80-100) fL MCH 30.8 (26-34) PG MCHC 34.6 (30-36) % RDW 13.4 (11.6-14.8) % Plt Count 172 (150-400) X10^3/uL Neut % (Auto) 43.7 L (50-75) % Lymph % (Auto) 44.4 H (25-40) % Terrell % (Auto) 7.3 (3-14) % Eos % (Auto) 3.9 (2-4) % Baso % (Auto) 0.7 (0-2) % Neut # (Auto) 2400 (9030-4522) /uL Lymph # (Auto) 2500 (4686-2251) /uL Terrell # (Auto) 400 (0-900) /uL Eos # (Auto) 200 (0-450) /uL Baso # (Auto) 0 (0-100) /uL PT 12.5 (10.1-12.7) SECONDS INR 1.1 (0.9-1.3) APTT 32 (26-36) SECONDS Sodium 133 L (137-145) mmol/L Potassium 3.7 (3.4-5.1) mmol/L Chloride 97 L (98-107) mmol/L Carbon Dioxide 30 (22-32) mmol/L BUN 14 (7-17) mg/dL Creatinine 0.70 (0.52-1.04) mg/dL Estimated GFR > 60 (>60) mL/min BUN/Creatinine Ratio 20.0 (6-22) Glucose 114 H (80-110) mg/dL Calcium 9.2 (8.4-10.2) mg/dL Total Bilirubin 0.4 (0.2-1.3) mg/dL AST 36 (14-36) IU/L ALT 27 (<35) IU/L Alkaline Phosphatase 54 (38-126) U/L Total Protein 7.4 (6.3-8.2) g/dL Albumin 4.4 (3.5-5.0) g/dL Globulin 3.0 (1.7-4.1) g/dL Albumin/Globulin Ratio 1.5 (1.0-2.8) Discharge Plan Departure Patient Disposition: Admitted as Observation Clinical Impression: Transient vision disturbance Admit Date/Time: 02/15/23 18:32 Admit Provider: Michael Aburto
[2023-02-15 16:34] LABS: Add Manual Diff / Slide Review NO; Basophils Absolute Auto 0 /uL (0-100); Basophils Percent Auto 0.7 % (0-2); Eosinophils Absolute Auto 200 /uL (0-450); Eosinophils Percent Auto 3.9 % (2-4); Hematocrit 37.5 % (36-46); Lymphocytes Absolute Auto 2500 /uL (1100-4500); Lymphocytes Percent Auto 44.4 % (25-40); Mean Corpuscular HGB Conc 34.6 % (30-36); Mean Corpuscular Hemoglobin 30.8 PG (26-34); Mean Corpuscular Volume 88.8 fL (80-100); Monocytes Absolute Auto 400 /uL (0-900); Monocytes Percent Auto 7.3 % (3-14); Neutrophils Absolute Auto 2400 /uL (1500-7000); Neutrophils Percent Auto 43.7 % (50-75); Platelet Count 172 X10^3/uL (150-400); Red Blood Cell Count 4.22 X10^6/uL (4.0-5.2); Red Cell Distribution Width 13.4 % (11.6-14.8); White Blood Cell Count 5.6 X10^3/uL (4.5-11.0)
[2023-02-15 16:40] LABS: INR 1.1 (0.9-1.3); Prothrombin Time 12.5 SECONDS (10.1-12.7)
[2023-02-15 16:43] LABS: PTT Partial Thromboplastin Tim 32 SECONDS (26-36)
[2023-02-15 16:44] LABS: Alanine Aminotransferase 27 IU/L (<35); Albumin 4.4 g/dL (3.5-5.0); Albumin Globulin Ratio 1.5 (1.0-2.8); Alkaline Phosphatase 54 U/L (38-126); Aspartate Aminotransferase 36 IU/L (14-36); Bilirubin Total 0.4 mg/dL (0.2-1.3); Blood Urea Nitrogen 14 mg/dL (7-17); Calcium 9.2 mg/dL (8.4-10.2); Carbon Dioxide 30 mmol/L (22-32); Chloride 97 mmol/L (98-107); Estimated Glomerular Filt Rate > 60 mL/min (>60); Glucose 114 mg/dL (80-110); HEMOLYSIS < 15 (0-50); Potassium 3.7 mmol/L (3.4-5.1); Sodium 133 mmol/L (137-145); Total Protein 7.4 g/dL (6.3-8.2)
--- NOTE | 2023-02-15 18:34 | P.HP_ITS ---
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 Patient states that the 1st episode happened about a week and a half ago, and was a blurry vision notably on the left half of the left eye which resolved in about 2 minutes. She is had smaller episodes on and off over the past months to weeks which have not bothered her much. She had another episode last night and early this morning where she describes her vision as going pink. She also describes intermittent palpitations with chest pressure and shortness of breath. At 1 point she checked her blood pressure and it was fine though her pressure machine told her that she had an irregular heartbeat but does not remember how fast her heart was going at that time. She was seeing her eye doctor who referred her to the ER should any symptoms recur after an unremarkable eye examination with that provider. She denies any current symptoms, denies any numbness, tingling, or symptoms. She does report some visual changes that are similar that happened with palpitations. 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 In the emergency room, her vitals were unremarkable except for a mild b radycardia. EKG showed sinus bradycardia without evidence of acute ischemia. Laboratory evaluation was fairly unremarkable except for a mild hyponatremia with sodium of 133. [facility] Medical History Bronchitis Carpal tunnel syndrome Cerumen impaction Chest pain Hyperlipidemia Hypertension Hypothyroid Insomnia Pericarditis Personal history of pneumonia Social History Smoking Status: Never smoker Meds Home Medications and Allergies Home Medications Medication Instructions Recorded Confirmed Type beclomethasone dipropionate 80 2 inh inhalation BID 03/01/21 10/06/22 History mcg/actuation HFA breath activated aerosol (Qvar RediHaler) nitroglycerin 0.4 mg sublingual 0.4 mg sublingual Q5-15M PRN chest 03/11/21 10/06/22 Rx tablet pain #20 tabs atorvastatin 10 mg tablet 20 mg PO BEDTIME #90 tabs 03/30/22 10/06/22 Rx metoprolol succinate 50 mg 50 mg PO DAILY #90 tabs 06/06/22 10/06/22 Rx tablet,extended release 24 hr levalbuterol tartrate 45 See Rx Instructions .Route 09/14/22 10/06/22 Rx mcg/actuation aerosol inhaler .COMPLEX #15 grams trazodone 50 mg tablet See Rx Instructions .Route 12/17/22 Rx .COMPLEX #90 tabs aspirin 81 mg tablet,delayed 81 mg PO DAILY 01/19/23 01/19/23 History release (Adult Low Dose Aspirin) efinaconazole 10 % topical 1 applic topical DAILY #8 mL 01/19/23 01/19/23 Rx solution with applicator levothyroxine 25 mcg tablet 25 mcg PO DAILY #90 tabs 01/29/23 Rx Allergies Allergy/AdvReac Type Severity Reaction Status Date / Time Penicillins [PENICILLINS] Allergy Intermediate STOMACH Verified 01/19/23 08:29 PAIN Sulfa (Sulfonamide Allergy Mild STOMACH Verified 01/19/23 08:29 Antibiotics) PAIN [SULFA (SULFONAMIDE ANTIBIOTICS)] albuterol Allergy Unknown Palpitation Verified 01/19/23 08:29 s calamine Allergy Unknown Verified 01/19/23 08:29 carbamazepine Allergy Unknown Verified 01/19/23 08:29 codeine Allergy Unknown Verified 01/19/23 08:29 diphenhydramine Allergy Unknown Verified 01/19/23 08:29 [From Benadryl] epinephrine Allergy Unknown Verified 01/19/23 08:29 glucosamine Allergy Unknown Verified 01/19/23 08:29 Review of Systems Review of Systems Narrative: All other systems reviewed with the patient and are negative unless otherwise stated. Exam Vital Signs (past 8 hours): - 02/15/23 16:09 02/15/23 16:48 02/15/23 17:00 Temperature 98 F Pulse Rate 65 61 Respiratory Rate 18 20 Blood Pressure 145/67 H 140/67 Pulse Oximetry 100 98 Oxygen Delivery Method Room Air 02/15/23 17:00 02/15/23 17:30 02/15/23 17:30 Temperature Pulse Rate 54 L 53 L Respiratory Rate 17 16 Blood Pressure 123/62 Pulse Oximetry 100 99 Oxygen Delivery Method Oxygen Delivery Method Room Air Narrative Exam Narrative: General:? Patient is well developed and well nourished, in no distress at this time. HEENT:? Normocephalic, atraumatic, extraocular muscles intact, oral pharynx is clear and mucous membranes are moist. Neck: supple and symmetric, trachea is midline, no cervical adenopathy. Negative for JVD Chest:? Normal AP diameter and contour without kyphoscoliosis, no tachypnea, equal chest rise bilaterally. Lungs:? CTA b/l no wheezing rhonchi or rales. Cardio:? Bradycardic rate with regular rhythm with no m/r/g. Abdomen: S NT ND. No CVA tenderness. Musculoskeletal:? Muscle strength and tone are equal within normal limits, no deformity. Extremities: Trace pedal edema without joint effusions. No cyanosis or clubbing. Skin:? Pale,? Warm to touch,dry and intact without rashes, ulcerations or petechiae.? Neuro:? Alert and orientated x3,? sensation to touch intact in all extremities, no gross deficits noted of cranial nerves. Psych:? Patient has a well-kept appearance, appropriate affect, mental status attitude thought context and judgment are appropriate for age. Objective ECG Impression: Sinus bradycardia without evidence of acute ischemia, unremarkable EKG as interpreted by [facility] 02/15/23 16:25 02/15/23 16:25 Labs: Laboratory Results - last 24 hr 02/15/23 02/15/23 02/15/23 16:25 16:25 16:25 WBC 5.6 RBC 4.22 Hgb 13.0 Hct 37.5 MCV 88.8 MCH 30.8 MCHC 34.6 RDW 13.4 Plt Count 172 Neut % (Auto) 43.7 L Lymph % (Auto) 44.4 H Barron % (Auto) 7.3 Eos % (Auto) 3.9 Baso % (Auto) 0.7 Neut # (Auto) 2400 Lymph # (Auto) 2500 Barron # (Auto) 400 Eos # (Auto) 200 Baso # (Auto) 0 PT 12.5 INR 1.1 APTT 32 Sodium 133 L Potassium 3.7 Chloride 97 L Carbon Dioxide 30 BUN 14 Creatinine 0.70 Estimated GFR > 60 BUN/Creatinine Ratio 20.0 Glucose 114 H Calcium 9.2 Total Bilirubin 0.4 AST 36 ALT 27 Alkaline Phosphatase 54 Total Protein 7.4 Albumin 4.4 Globulin 3.0 Albumin/Globulin Ratio 1.5 Assessment & Plan Assessment & Plan narrative: 1. TIA - presume visual symptoms are secondary to a TIA at this time with history highly suspicious for embolic phenomenon from atrial fibrillation. Another possibility is her symptoms are from symptomatic atrial fibrillation. Less likely atypical migraine. - MRI, TTE ordered - continue telemetry - continue asa and continue home statin dosing for now. - eliquis if patient is found to have afib. - A1c, TSH, lipid panel ordered. - will not order PT/OT/speech as patient denies current visual deficits. 2. History of myopericarditis, ? CAD - patient was transferred to [facility] for presumed NSTEMI, but LHC was normal. EF was 39% at that time but went back to normal. She remains on asa and metoprolol and above statin therapy - records available to not clearly state she has CAD, but no outpatient cardiology notes are available for review but she is on asa and statin therapy, though statin is not high intensity. All the information I have is from discharge summary from 02/2021. - consider obtaining outpatient cardiology records if further investigation of heart is needed. - consider ESR/CRP, but no ongoing chest symptoms now. 3. Hypothyroidism - TSH ordered, will continue levothyroxine 25 mcg. 4. HLD - continue home statin atorvastatin. I have utilized all available immediate resources to obtain, update, or review the patient's current medications. Additional history was obtained via discussion with the ER provider as well as the patient's spouse. I have reviewed the patient's presenting imaging, output documentation including from primary care provider and ophthalmology clinic, presenting lab evaluation and reviewed the EKG. Discussed plan of care with the patient and spouse. We did discuss the risks and benefits of admission to the hospital for TIA vs continued outpatient evaluation. They were in agreement for further evaluation now given symptoms were most recently yesterday / early this AM. Code: Full, surrogate decision maker is the patient's spouse DVT: low risk no indication, patient ambulatory. Dispo: admitted observation for further evaluation and monitoring of presumed T IA
--- NOTE | 2023-02-15 19:57 | DI.MRI.S_ITS ---
PROCEDURE: MR HEAD/BRAIN WO CON INDICATIONS: vision loss, suspected embolic TIA TECHNIQUE: Non-contrast axial T1 spin echo, axial T2 fast spin echo, sagittal and axial FLAIR, coronal T2 fast spin echo, axial gradient echo, axial diffusion and ADC through the brain. COMPARISON: [facility], CT, CT ANGIO HEAD AND NECK, 02/15/2023, 16:44. [facility], CT, CT HEAD/BRAIN WO CON, 02/15/2023, 16:44. FINDINGS: Image quality: This examination is limited by involuntary motion artifact. CSF spaces: Ventricles appear symmetric in size and shape. Basal cisterns are patent. No extra-axial fluid collections. Brain: No intracranial bleeds or mass effects. There is cerebral volume loss for age. There are periventricular and deep white matter chronic small vessel ischemic changes. Brainstem appears normal. Diffusion-weighted images show no acute ischemic insults. No chronic ischemic insults. Normal intravascular flow voids are present. Skull and face: Calvarial bone marrow is normal in signal. To the limits of this standard protocol study without contrast, no significant abnormality of the orbits or globes can be seen. Sinuses: Sinuses and mastoids are clear. IMPRESSION: No findings of acute or subacute infarction can be seen. No significant abnormality of the orbits or globes can be seen to the limits of this standard protocol study without IV contrast. Dictated by: José Luis Salamanca M.D. on 02/16/2023 at 9:52 Approved by: José Luis Salamanca M.D. on 02/16/2023 at 9:55
--- NOTE | 2023-02-15 19:57 | DI.ECHO.S_ITS ---
[facility]---------+ [facility] +---------+ : : [address] : : : : [id number] : : : : Phone: [phone]+ Echocardiogram Report + + :Name: CLYDE DAMIAN Study Date: 02/16/2023 Height: 60 in : :[facility] ReadingLocation: Weight: 150 lb : : Gender: Female BSA: 1.7 m2 : :: 1960 Age: 62 yrs BP: 134/60 mmHg: :Reason For Study: TIA : :Ordering Physician: LEONIDAS, : :ALEKSEY MALLOY Performed By: Eveline Murphy : :Referring: ALEKSEY LAUREN : + + Interpretation Summary The left ventricle is normal in size and wall thickness. Left ventricular ejection fraction is estimated to be 55 +/- 5%. In some of the apical views there appears to be mild apical hypokinesis including distal one third of LV. There is no thrombus. The right ventricle is normal in size and function. Injection of contrast documented no interatrial shunt. No significant valvular pathology. The IVC is of normal diameter and collapses greater than 50% with a sniff. This suggests a low right atrial pressure of 3 mm Hg. The patient was in sinus bradycardia with heart rates between 46-52 bpm during the exam. Procedure: A two-dimensional transthoracic echocardiogram with color flow and Doppler was performed. The study quality was technically adequate. There is no prior echocardiogram noted for this patient. A saline contrast injection was performed to assess for cardiac shunting. The patient was in sinus bradycardia with heart rates between 46-52 bpm during the exam. Left Ventricle: The left ventricle is normal in size and wall thickness. There is no thrombus. Left ventricular ejection fraction is estimated to be 55 +/- 5%. In some of the apical views there appears to be mild apical hypokinesis including distal one third of LV. Diastolic parameters suggest a relaxation abnormality of the left ventricle, consistent with probable normal filling pressures. Right Ventricle: The right ventricle is normal in size and function. Atria: The left atrial size is normal. Right atrial size is normal. A prominent eustachian valve is noted. Injection of contrast documented no interatrial shunt. Mitral Valve: The mitral valve is normal. There is no mitral valve stenosis. There is trace mitral regurgitation. Aortic Valve: The aortic valve is trileaflet. The aortic valve opens well. There is no aortic valve stenosis. No aortic regurgitation is present. Tricuspid Valve: The tricuspid valve is normal. There is no tricuspid stenosis. There is trace tricuspid regurgitation. The right ventricular systolic pressure is estimated to be at least 14 mmHg based on an estimated right atrial pressure of 3 mm Hg. Pulmonic Valve: The pulmonic valve leaflets are thin and pliable; valve motion is normal. There is no pulmonic valvular stenosis. There is no pulmonic valvular regurgitation. Great Vessels: The aortic root is normal size. The ascending aorta is normal in size. The pulmonary artery is normal size. The IVC is of normal diameter and collapses greater than 50% with a sniff. This suggests a low right atrial pressure of 3 mm Hg. Pericardium/ Pleura There is no pericardial effusion. There is no pleural effusion. MMode/2D Measurements & Calculations LVIDd: 5.1 cm LVOT diam: 1.8 cm LVIDs: 3.2 cm Ao root diam: 3.1 cm FS: 37.3 % asc Aorta Diam: 3.3 cm IVSd: 0.90 cm LVPWd: 0.70 cm LV hanley. diameter/BSA (cm/m^2): 3.1 LV sys. diameter/BSA (cm/m^2): 1.9 LA A2 area: 17.5 cm2 RA long axis: 4.5 cm LA A4 area: 14.8 cm2 RA area: 13.4 cm2 LA length (vol): 5.3 cm RA vol: 33.8 ml LA vol: 41.4 ml RA : 20.5 ml/m2 LA vol index: 25.1 ml/m2 RVD1 (basal): 3.2 cm LVLs ap4: 5.1 cm LVLd ap2: 6.7 cm TAPSE_phl: 2.8 cm LVLs ap2: 5.8 cm Doppler Measurements & Calculations Ao V2 max: 117.0 cm/sec LVOT Max Tino: 100.1 cm/sec Ao V2 mean: 79.3 cm/sec LV V1 max P.0 mmHg Ao max P.0 mmHg LV V1 VTI: 23.0 cm Ao mean P.0 mmHg VENITA(I,D): 2.0 cm2 Ao V2 VTI: 29.5 cm VENITA(V,D): 2.2 cm2 sev ratio: 0.78 VENITA indexed to BSA (cm^2/m^2): 1.2 MV E max tino: 65.8 cm/sec TR max tino: 164.0 cm/sec MV A max tino: 70.3 cm/sec TR max P.2 mmHg MV E/A: 0.94 PA V2 max: 89.0 cm/sec Med Peak E' Tino: 8.0 cm/sec PA V2 mean: 60.8 cm/sec E/E' med: 8.2 PA mean P.0 mmHg Lat Peak E' Tino: 10.2 cm/sec PA pr(Accel): 24.6 mmHg E/E' lat: 6.5 E/e' average: 7.3 MV dec time: 0.22 sec SV(LVOT): 58.6 ml AV VR_phl: 0.85 VENITA(VTI)/BSA_phl: 1.2 Reading Physician:12:17 PM
[2023-02-15] MEDS: ATORVASTATIN 20 MG TABLET PO (22:45)
[2023-02-15] MEDS: TRAZODONE 50 MG TABLET PO (22:45)
--- NOTE | 2023-02-16 01:40 | PC.ADMIT ---
[email or web address] [facility] Admission Note: Patient admitted to AC unit from ED at 1945 via wheelchair transport. A/O x 4, able to make needs known. Denied pain/ chest pain/ SOB or visual changes. Bed low and locked, call light within reach, and bed alarm on. The patient,Mary Brown,62 y/o, was given written information regarding hospital policies, unit procedures and contact persons. Patient's smoking status: Never smoker. Vital Signs - 8 hr 02/15/23 18:00 02/15/23 18:00 02/15/23 18:33 Temperature Pulse Rate 52 L 55 L Respiratory Rate 16 23 Blood Pressure 142/64 H Pulse Oximetry 99 97 Oxygen Delivery Method Oxygen Flow Rate 02/15/23 18:34 02/15/23 18:34 02/15/23 19:00 Temperature Pulse Rate 53 L Respiratory Rate 20 Blood Pressure 153/74 H 140/66 Pulse Oximetry 100 Oxygen Delivery Method Oxygen Flow Rate 02/15/23 19:00 02/15/23 19:30 02/15/23 19:30 Temperature Pulse Rate 51 L 52 L Respiratory Rate 15 13 Blood Pressure 139/65 Pulse Oximetry 96 99 Oxygen Delivery Method Room Air Oxygen Flow Rate 02/15/23 19:45 02/15/23 23:17 02/15/23 19:57 Temperature 97.4 F L 97.1 F L Pulse Rate 53 L 61 Respiratory Rate 18 18 Blood Pressure 134/60 103/54 L Pulse Oximetry 100 95 Oxygen Delivery Method Room Air Oxygen Flow Rate 0 0 02/15/23 19:57 02/15/23 23:57 Temperature Pulse Rate Respiratory Rate Blood Pressure Pulse Oximetry 95 95 Oxygen Delivery Method Room Air Room Air Oxygen Flow Rate
[2023-02-16 03:00] VITALS: BP 113/61; PULSE 61; RESP 18; TEMP 36.6; O2SAT 99
[2023-02-16] MEDS: LEVOTHYROXINE 25 MCG TABLET PO (05:07)
[2023-02-16 05:50] LABS: Add Manual Diff / Slide Review NO; Basophils Absolute Auto 0 /uL (0-100); Basophils Percent Auto 0.9 % (0-2); Eosinophils Absolute Auto 200 /uL (0-450); Eosinophils Percent Auto 4.9 % (2-4); Hematocrit 39.2 % (36-46); Hemoglobin 13.3 g/dL (12.0-16.0); Lymphocytes Absolute Auto 2100 /uL (1100-4500); Lymphocytes Percent Auto 48.9 % (25-40); Mean Corpuscular HGB Conc 33.9 % (30-36); Mean Corpuscular Hemoglobin 30.2 PG (26-34); Mean Corpuscular Volume 89.2 fL (80-100); Monocytes Absolute Auto 300 /uL (0-900); Monocytes Percent Auto 7.7 % (3-14); Neutrophils Absolute Auto 1600 /uL (1500-7000); Neutrophils Percent Auto 37.6 % (50-75); Platelet Count 163 X10^3/uL (150-400); Red Blood Cell Count 4.39 X10^6/uL (4.0-5.2); Red Cell Distribution Width 13.5 % (11.6-14.8); White Blood Cell Count 4.3 X10^3/uL (4.5-11.0)
[2023-02-16 05:59] LABS: BUN Creatinine Ratio 17.6 (6-22); Blood Urea Nitrogen 12 mg/dL (7-17); Calcium 8.9 mg/dL (8.4-10.2); Carbon Dioxide 28 mmol/L (22-32); Chloride 100 mmol/L (98-107); Cholesterol 135 mg/dL (140-199); Estimated Glomerular Filt Rate > 60 mL/min (>60); Glucose 95 mg/dL (80-110); HDL Cholesterol 83 mg/dL (40-60); LDL Cholesterol Calculated 42 mg/dL (<100); Magnesium 1.9 mg/dL (1.6-2.3); Potassium 4.5 mmol/L (3.4-5.1); Sodium 135 mmol/L (137-145); Triglycerides 52 mg/dL (35-150)
[2023-02-16 06:00] LABS: HEMOLYSIS 64 (0-50)
[2023-02-16 06:35] LABS: TSH w/ Reflex to FT4 4.62 uIU/mL (0.47-4.68)
[2023-02-16 07:00] VITALS: O2SAT 99
[2023-02-16 08:10] VITALS: BP 124/62; PULSE 53; RESP 17; TEMP 36.2; O2SAT 99
[2023-02-16 08:48] VITALS: BP 124/62
[2023-02-16] MEDS: METOPROLOL ER 50 MG TABLET PO (08:48)
[2023-02-16] MEDS: ASPIRIN EC 81 MG TABLET PO (08:49)
[2023-02-16 09:20] VITALS: BP 126/68
--- NOTE | 2023-02-16 12:44 | PM.DS.1 ---
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 Patient states that the 1st episode happened about a week and a half ago, and was a blurry vision notably on the left half of the left eye which resolved in about 2 minutes. She is had smaller episodes on and off over the past months to weeks which have not bothered her much. She had another episode last night and early this morning where she describes her vision as going pink. She also describes intermittent palpitations with chest pressure and shortness of breath. At 1 point she checked her blood pressure and it was fine though her pressure machine told her that she had an irregular heartbeat but does not remember how fast her heart was going at that time. She was seeing her eye doctor who referred her to the ER should any symptoms recur after an unremarkable eye examination with that provider. She denies any current symptoms, denies any numbness, tingling, or symptoms. She does report some visual changes that are similar that happened with palpitations. 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 In the emergency room, her vitals were unremarkable except for a mild bradycardia. EKG showed sinus bradycardia without evidence of acute ischemia. Laboratory evaluation was fairly unremarkable except for a mild hyponatremia with sodium of 133. Discharge Providers Provider Date of admission: 02/15/23 18:32 Discharge Date: 02/16/23 Primary care physician: Manuela Babcock MD Discharge provider: Constantino uGrrola, Summary Hospital Course Discharge Diagnosis: 1. possible TIA vs migraine associated visual changes ?- visual symptoms included visual flashing lights, pink hue and transient peripheral fuzzy vision/vision loss. Has detached retina per ophtho which may account the fuzzy vision, vision loss or pink hue. Flashing lights more fit with an aura from a migraine, and patient does describe occasional headaches. Patient will get referral to neurologist if she continues to have these symptoms. ?- MRI, TTE ordered and reassuring ?- continue telemetry, no evidence of A-fib ?- continue asa and continue home statin dosing. ?- A1c, TSH, lipid panel ordered and WNL - patient advised to get PCP referral for Holter monitor to assess for underlying A-fib 2. History of myopericarditis, ? CAD ?- patient was transferred to [facility] for presumed NSTEMI, but LHC was normal. EF was 39% at that time but went back to normal. She remains on asa and metoprolol and above statin therapy ?- records available to not clearly state she has CAD, but no outpatient cardiology notes are available for review but she is on asa and statin therapy, though statin is not high intensity. All the information I have is from discharge summary from 02/2021. ?- consider obtaining outpatient cardiology records if further investigation of heart is needed. ?- consider ESR/CRP, but no ongoing chest symptoms now. 3. Hypothyroidism ?- TSH 4.65, will continue levothyroxine 25 mcg. 4. HLD ?- continue home atorvastatin Hospital Course: Admitted for various visual symptoms occuring at random including loss of vision transiently in her left eye, flashing lights, pink hue and fuzzy peripheral vision. Sent by ophtho due to constellation of symptoms being concerning for possible TIA, although she was diagnosed with retinal detachment which may account for some of these symptoms. MRI brain, echo and CT/CTA head were all reassuring. She was continued on her home meds. Advised to get a Holter monitor placed. If her visual symptoms reoccur she will see neurology for possible migraine associated auras. Exam Vital Signs (past 8 hours): - 02/16/23 07:00 02/16/23 07:00 02/16/23 08:10 Temperature 97.1 F L Pulse Rate 53 L Respiratory Rate 17 Blood Pressure 124/62 Pulse Oximetry 99 99 99 Oxygen Delivery Method Room Air Oxygen Flow Rate 0 02/16/23 08:48 02/16/23 09:20 Temperature Pulse Rate Respiratory Rate Blood Pressure 124/62 126/68 Pulse Oximetry Oxygen Delivery Method Oxygen Flow Rate Oxygen Delivery Method Room Air Oxygen Flow Rate 0 Narrative Exam Narrative: General:? Patient is well developed and well nourished, in no distress at this time. HEENT:? Normocephalic, atraumatic, extraocular muscles intact, oral pharynx is clear and mucous membranes are moist. Neck: supple and symmetric, trachea is midline, no cervical adenopathy. Negative for JVD Chest:? Normal AP diameter and contour without kyphoscoliosis, no tachypnea, equal chest rise bilaterally. Lungs:? CTA b/l no wheezing rhonchi or rales. Cardio:? Bradycardic rate with regular rhythm with no m/r/g. Abdomen: S NT ND. No CVA tenderness. Musculoskeletal:? Muscle strength and tone are equal within normal limits, no deformity. Extremities: Trace pedal edema without joint effusions. No cyanosis or clubbing. Skin:? Pale,? Warm to touch,dry and intact without rashes, ulcerations or petechiae.? Neuro:? Alert and orientated x3,? sensation to touch intact in all extremities, no gross deficits noted of cranial nerves. Psych:? Patient has a well-kept appearance, appropriate affect, mental status attitude thought context and judgment are appropriate for age. Objective Labs 02/16/23 05:29 02/16/23 05:29 Labs: Laboratory Results - last 24 hr 02/15/23 02/15/23 02/15/23 16:25 16:25 16:25 WBC 5.6 RBC 4.22 Hgb 13.0 Hct 37.5 MCV 88.8 MCH 30.8 MCHC 34.6 RDW 13.4 Plt Count 172 Neut % (Auto) 43.7 L Lymph % (Auto) 44.4 H Collin % (Auto) 7.3 Eos % (Auto) 3.9 Baso % (Auto) 0.7 Neut # (Auto) 2400 Lymph # (Auto) 2500 Collin # (Auto) 400 Eos # (Auto) 200 Baso # (Auto) 0 PT 12.5 INR 1.1 APTT 32 Sodium 133 L Potassium 3.7 Chloride 97 L Carbon Dioxide 30 BUN 14 Creatinine 0.70 Estimated GFR > 60 BUN/Creatinine Ratio 20.0 Glucose 114 H Hemoglobin A1c Calcium 9.2 Magnesium Total Bilirubin 0.4 AST 36 ALT 27 Alkaline Phosphatase 54 Total Protein 7.4 Albumin 4.4 Globulin 3.0 Albumin/Globulin Ratio 1.5 Triglycerides Cholesterol LDL Cholesterol, Calc HDL Cholesterol TSH 02/16/23 02/16/23 02/16/23 05:29 05:29 05:29 WBC 4.3 L RBC 4.39 Hgb 13.3 Hct 39.2 MCV 89.2 MCH 30.2 MCHC 33.9 RDW 13.5 Plt Count 163 Neut % (Auto) 37.6 L Lymph % (Auto) 48.9 H Collin % (Auto) 7.7 Eos % (Auto) 4.9 H Baso % (Auto) 0.9 Neut # (Auto) 1600 Lymph # (Auto) 2100 Collin # (Auto) 300 Eos # (Auto) 200 Baso # (Auto) 0 PT INR APTT Sodium 135 L Potassium 4.5 Chloride 100 Carbon Dioxide 28 BUN 12 Creatinine 0.68 Estimated GFR > 60 BUN/Creatinine Ratio 17.6 Glucose 95 Hemoglobin A1c 5.0 Calcium 8.9 Magnesium 1.9 Total Bilirubin AST ALT Alkaline Phosphatase Total Protein Albumin Globulin Albumin/Globulin Ratio Triglycerides 52 Cholesterol 135 L LDL Cholesterol, Calc 42 HDL Cholesterol 83 H TSH 02/16/23 05:29 WBC RBC Hgb Hct MCV MCH MCHC RDW Plt Count Neut % (Auto) Lymph % (Auto) Collin % (Auto) Eos % (Auto) Baso % (Auto) Neut # (Auto) Lymph # (Auto) Collin # (Auto) Eos # (Auto) Baso # (Auto) PT INR APTT Sodium Potassium Chloride Carbon Dioxide BUN Creatinine Estimated GFR BUN/Creatinine Ratio Glucose Hemoglobin A1c Calcium Magnesium Total Bilirubin AST ALT Alkaline Phosphatase Total Protein Albumin Globulin Albumin/Globulin Ratio Triglycerides Cholesterol LDL Cholesterol, Calc HDL Cholesterol [facility].62 [facility] History Bronchitis Carpal tunnel syndrome Cerumen impaction Chest pain Hyperlipidemia Hypertension Hypothyroid Insomnia Pericarditis Personal history of pneumonia Social History household members: spouse Smoking Status: Never smoker Discharge Plan Discharge Plan Patient Disposition: Home Provider Discharge Comment: We found no evidence of stroke. You should get a referral to have a Zio patch heart monitor placed to look for an irregular heart rhythm called Atrial fibrillation. I would also see a neurologist if your visual symptoms continue to occur, as they may be related to migraines. Discharge orders & Medications Prescriptions: Continued atorvastatin 10 mg tablet 20 mg PO BEDTIME Qty: 90 3RF metoprolol succinate 50 mg tablet extended release 24 hr 50 mg PO DAILY Qty: 90 3RF levalbuterol tartrate 45 mcg/actuation HFA aerosol inhaler See Rx Instructions .ROUTE .COMPLEX Qty: 15 12RF Dose Instruction: INHALE ONE TO TWO PUFFS BY MOUTH EVERY 4 HOURS NEEDED FOR WHEEZE Rx Instructions: INHALE ONE TO TWO PUFFS BY MOUTH EVERY 4 HOURS NEEDED FOR WHEEZE trazodone 50 mg tablet See Rx Instructions .ROUTE .COMPLEX Qty: 90 0RF Dose Instruction: TAKE ONE TABLET BY MOUTH AT BEDTIME Rx Instructions: TAKE ONE TABLET BY MOUTH AT BEDTIME levothyroxine 25 mcg tablet 25 mcg PO DAILY Qty: 90 3RF Qvar RediHaler 80 mcg/actuation HFA aerosol breath activated 2 inh inhalation BID efinaconazole 10 % solution with applicator 1 applic topical DAILY Qty: 8 12RF Rx Instructions: apply every day to each nail and the surrounding skin for 1 yr aspirin [Adult Low Dose Aspirin] 81 mg tablet,delayed release (DR/EC) 81 mg PO DAILY nitroglycerin 0.4 mg tablet, sublingual 0.4 mg sublingual Q5-15M PRN (Reason: chest pain) Qty: 20 1RF Rx Instructions: do not exceed 3 doses per episode please fill stat Follow up/Referrals: Manuela Babcock MD [Primary Care Provider] - 1 Week Visit Report/Discharge Packet Stand Alone Forms: Patient Portal/API, Stroke Signs & Symptoms Discharge Data Primary Care Provider: Manuela Babcock Attending Provider: Michael Aburto Admit Date/Time: 02/15/23 18:32 Discharges patient from system. Discharge Date/Time: 02/16/23 12:53 Quality VTE Deep Vein Thrombosis/Pulmonary Embolism Present on Admission: No
--- NOTE | 2023-02-16 12:56 | PC.NURSE ---
Pt had MRI & ECHO this morning Denies discomfort. Ind. in room Tele SB per ICU staff. Orders for D/C recieved Home instructions given w/understanding Pt escorted by staff via W/C to waiting vehicle.
--- NOTE | 2023-02-16 13:26 | CM.DANOTE ---
DCP Assessment Brief: Patient is a 62yo patient here to rule out a potential stroke after a period of vision loss. PCP Manuela Babcock and self pay [employer] reviewed EMR. Per provider in rounds, patient will have an MRI and echo completed and if all of those are clear patient will d/c home. Per chart, patient lives on [address] with spouse Conner [phone]. Patient left prior to being seen by this author. From chart, patient is active and independent at baseline. Per provider d/c summary, We found no evidence of stroke. You should get a referral to have a Zio patch heart monitor placed to look for an irregular heart rhythm called Atrial fibrillation. I would also see a neurologist if your visual symptoms continue to occur, as they may be related to migraines. Plan: Patient to d/c home with spouse. No needs identified at this time. CM team will continue to follow as needed. MARCUS Dunlap Discharge Planning/Care Management CM Discharge Assessment Start: 02/16/23 13:25 Freq: Status: Active Protocol: Document 02/16/23 13:25 (Rec: 02/16/23 13:26 [id number]) Discharge Planning Assessment Assigned [employer] MARCUS Bliss DPOA/Assigned Designee Name Conner Brown (spouse Contact Information [phone] Advance Directives? Yes Advance Directives on File No History Provided By Medical Record Prior Living Arrangements House Household Members spouse Type of transporation used prior to Drives own vehicle admit Independent with ADL's Yes Is patient alert and oriented? Yes Discharge Plan Home Whiteboard Updated in Patient Room with No name and ext. # of Rep[employer] Review Status In Process Next Review Type Continued Stay Review
== END 2023-02-16 12:53 | disposition home or self-care (01) ==
LOC: ED 16:20 → AC 18:33
PROVIDERS: Admitting Provider Internal Medicine; Emergency Provider Emergency Medicine; Family Provider Family Medicine; PCP Family Medicine; Referring Provider Emergency Medicine; Visit Provider Internal Medicine
DX: H53.9 Unspecified visual disturbance (principal); H33.20 Serous retinal detachment, unspecified eye; I10 Essential (primary) hypertension; E78.5 Hyperlipidemia, unspecified; E03.9 Hypothyroidism, unspecified
CPT/HCPCS: 36415; 70450; 70496; 70498; 70551; 80048; 80053; 80061; 83036; 83735; 84443; 85025; 85610; 85730; 93005; 93306; 99284; G0378; Q9967

== ENCOUNTER → 2023-04-19 13:22 | Outpatient (CLI) | payer OTHER, SELFPAY ==
[2023-02-15 19:57] VITALS: BMI 29.1
[2023-04-19 21:34] LABS: Sodium Urine Random 60 mmol/L (30-90)
[2023-04-23 13:38] LABS: Osmolality Urine 609 mOsmol/kg (.)
== END ==
PROVIDERS: Family Provider Family Medicine; PCP Family Medicine; Visit Provider Family Medicine
DX: E87.1 Hypo-osmolality and hyponatremia (principal)
CPT/HCPCS: 83935; 84300

== ENCOUNTER → 2023-08-27 08:59 | Outpatient (CLI) | payer OTHER, SELFPAY ==
[2023-02-15 19:57] VITALS: BMI 29.1
[2023-08-27 19:44] LABS: Blood Urea Nitrogen 20 mg/dL (7-17); Calcium 9.1 mg/dL (8.4-10.2); Carbon Dioxide 34 mmol/L (22-32); Chloride 101 mmol/L (98-107); Estimated Glomerular Filt Rate > 60 mL/min (>60); Glucose 78 mg/dL (80-110); HEMOLYSIS < 15 (0-50); Potassium 4.2 mmol/L (3.4-5.1); Sodium 137 mmol/L (137-145)
[2023-08-27 20:15] LABS: Cortisol AM (Before 10AM) 13.6 ug/dL (4.46-22.7)
[2023-08-27 20:27] LABS: Sodium Urine Random 38 mmol/L (30-90)
[2023-08-29 15:09] LABS: Osmolality Urine 398 mOsmol/kg (.)
[2023-08-29 16:21] LABS: Osmolality, Serum 289 mOsmol/kg (280-301)
== END ==
PROVIDERS: Family Provider Family Medicine; PCP Family Medicine; Visit Provider Family Medicine
DX: E87.1 Hypo-osmolality and hyponatremia (principal); R00.2 Palpitations; G31.84 Mild cognitive impairment of uncertain or unknown etiology; R48.0 Dyslexia and alexia; R41.3 Other amnesia
CPT/HCPCS: 80048; 82533; 83930; 83935; 84300

== ENCOUNTER → 2023-09-19 11:27 | Outpatient (CLI) | payer OTHER, SELFPAY ==
[2023-02-15 19:57] VITALS: BMI 29.1
[2023-09-19 21:36] LABS: Ferritin 59 ng/mL (11-264)
[2023-09-20 20:02] LABS: Iron 105 ug/dL (37-170)
[2023-09-20 20:15] LABS: Percent Iron Saturation 37 % (15-50); Total Iron Binding Capacity 287 ug/dL (265-497)
[2023-09-22 03:44] LABS: Calcium 9.6 mg/dL (8.7-10.3); Parathyroid Hormone, Intact 23 pg/mL (15-65)
== END ==
PROVIDERS: Family Provider Family Medicine; PCP Family Medicine; Visit Provider Family Medicine
DX: M25.569 Pain in unspecified knee (principal); G89.29 Other chronic pain; M11.20 Other chondrocalcinosis, unspecified site
CPT/HCPCS: 82310; 82728; 83540; 83550; 83970

== ENCOUNTER → 2023-12-24 13:31 | Outpatient (CLI) | payer OTHER, SELFPAY ==
[2023-02-15 19:57] VITALS: BMI 29.1
== END ==
PROVIDERS: Family Provider Family Medicine; PCP Family Medicine; Visit Provider Family Medicine
DX: R39.89 Other symptoms and signs involving the genitourinary system (principal)
CPT/HCPCS: 87086

== ENCOUNTER → 2024-03-21 | Outpatient (CLI) | payer OTHER, SELFPAY ==
[2023-02-15 19:57] VITALS: BMI 29.1
== END ==
LOC: MAMMO 09:12
PROVIDERS: Family Provider Family Medicine; PCP Family Medicine; Referring Provider Family Medicine; Visit Provider Family Medicine
DX: Z12.31 Encounter for screening mammogram for malignant neoplasm of breast (principal)
CPT/HCPCS: 77063; 77067

== ENCOUNTER → 2024-04-01 09:19 | Outpatient (CLI) | payer OTHER, SELFPAY ==
[2023-02-15 19:57] VITALS: BMI 29.1
[2024-04-01 19:02] LABS: Add Manual Diff / Slide Review NO; Basophils Absolute Auto 0 /uL (0-100); Basophils Percent Auto 0.6 % (0-2); Eosinophils Absolute Auto 100 /uL (0-450); Eosinophils Percent Auto 2.6 % (2-4); Hematocrit 37.8 % (36-46); Hemoglobin 12.9 g/dL (12.0-16.0); Lymphocytes Absolute Auto 1700 /uL (1100-4500); Lymphocytes Percent Auto 35.7 % (25-40); Mean Corpuscular Volume 91.1 fL (80-100); Monocytes Absolute Auto 300 /uL (0-900); Monocytes Percent Auto 7.2 % (3-14); Neutrophils Absolute Auto 2600 /uL (1500-7000); Neutrophils Percent Auto 53.9 % (50-75); Platelet Count 166 X10^3/uL (150-400); Red Blood Cell Count 4.15 X10^6/uL (4.0-5.2); Red Cell Distribution Width 13.9 % (11.6-14.8); White Blood Cell Count 4.8 X10^3/uL (4.5-11.0)
[2024-04-01 20:28] LABS: Alanine Aminotransferase 16 IU/L (<35); Albumin 3.9 g/dL (3.5-5.0); Albumin Globulin Ratio 1.6 (1.0-2.8); Alkaline Phosphatase 53 U/L (38-126); Aspartate Aminotransferase 26 IU/L (14-36); BUN Creatinine Ratio 22.7 (6-22); Bilirubin Total 0.6 mg/dL (0.2-1.3); Blood Urea Nitrogen 17 mg/dL (7-17); Calcium 8.9 mg/dL (8.4-10.2); Carbon Dioxide 28 mmol/L (22-32); Chloride 99 mmol/L (98-107); Cholesterol 135 mg/dL (140-199); Estimated Glomerular Filt Rate > 60 mL/min (>60); Globulin 2.4 g/dL (1.7-4.1); Glucose 100 mg/dL (80-110); HDL Cholesterol 92 mg/dL (40-60); HEMOLYSIS < 15 (0-50); LDL Cholesterol Calculated 33 mg/dL (<100); Sodium 131 mmol/L (137-145); Total Protein 6.3 g/dL (6.3-8.2); Triglycerides 52 mg/dL (35-150)
[2024-04-01 20:39] LABS: Vitamin D 25 Hydroxy (D3) 43.9 ng/mL (30.0-100.0)
[2024-04-01 21:02] LABS: Thyroid Stimulating Hormone 2.06 uIU/mL (0.47-4.68)
[2024-04-01 21:21] LABS: Vitamin B12 548 pg/mL (239-931)
== END ==
PROVIDERS: Family Provider Family Medicine; PCP Family Medicine; Visit Provider Family Medicine
DX: M81.0 Age-related osteoporosis without current pathological fracture (principal); I21.4 Non-ST elevation (NSTEMI) myocardial infarction; I10 Essential (primary) hypertension; E87.1 Hypo-osmolality and hyponatremia; R41.3 Other amnesia; E78.5 Hyperlipidemia, unspecified; E03.9 Hypothyroidism, unspecified
CPT/HCPCS: 80053; 80061; 82306; 82607; 84443; 85025

== ENCOUNTER → 2024-04-10 15:43 | Outpatient (CLI) | payer OTHER, SELFPAY ==
[2023-02-15 19:57] VITALS: BMI 29.1
--- NOTE | 2024-04-10 | DI.MG.S_ITS ---
BILATERAL DIGITAL SCREENING MAMMOGRAM 3D/2D WITH CAD: 04/10/2024 CLINICAL: Routine screening. Family history of breast cancer. Comparison is made to exams dated: 12/17/2020 mammogram, 11/09/2017 mammogram - [facility], and 04/10/2024 mammogram - [facility]. The breasts are heterogeneously dense, which may obscure small masses (category c / 51-75% glandular tissue). Current study was also evaluated with a Computer Aided Detection (CAD) system. There is an asymmetry in the right breast middle depth superior region seen on the mediolateral oblique view only. This is more prominent. There also is an asymmetry in the right breast middle depth lateral region seen on the craniocaudal view only. This is more prominent. No other significant masses, calcifications, or other findings are seen in either breast. IMPRESSION: INCOMPLETE: NEED ADDITIONAL IMAGING EVALUATION The asymmetry in the right breast middle depth superior region seen on the mediolateral oblique view only is indeterminate. The asymmetry in the right breast middle depth lateral region seen on the craniocaudal view only is indeterminate. Additional views with possible ultrasound are recommended. Based on the Tyrer Cuzick model (a risk assessment model) the patient's lifetime risk is 11.2% and her 10 year risk is 5.2%. According to the ACR, ACS, and NCCN guidelines, an annual breast MRI exam along with mammogram is recommended if the patient's lifetime risk is 20% or greater. This exam was interpreted at Station ID: [id number]. NOTE: For mammograms, a report in lay terms will be sent to the patient. Approximately 15% of breast malignancies will not be visualized mammographically. In the management of a palpable breast mass, a negative mammogram must not discourage biopsy of a clinically suspicious lesion. Electronically Signed By: Gordon Agarwal M.D. [facility] [place]/:04/18/2024 17:29:30 copy to: RACHAEL THOMAS letter sent: Additional Imaging Needed ACR BI-RADS Category 0: Incomplete: Need Additional Imaging Evaluation
== END ==
PROVIDERS: Family Provider Family Medicine; PCP Family Medicine; Referring Provider Family Medicine; Visit Provider Family Medicine
DX: Z12.31 Encounter for screening mammogram for malignant neoplasm of breast (principal); Z80.3 Family history of malignant neoplasm of breast; R92.333 Mammographic heterogeneous density, bilateral breasts
CPT/HCPCS: 77063; 77067

== ENCOUNTER → 2024-04-25 12:06 | Outpatient (CLI) | payer OTHER, SELFPAY ==
[2023-02-15 19:57] VITALS: BMI 29.1
[2024-04-25 20:09] LABS: BUN Creatinine Ratio 21.2 (6-22); Blood Urea Nitrogen 14 mg/dL (7-17); Calcium 9.1 mg/dL (8.4-10.2); Carbon Dioxide 27 mmol/L (22-32); Chloride 99 mmol/L (98-107); Estimated Glomerular Filt Rate > 60 mL/min (>60); Glucose 88 mg/dL (80-110); HEMOLYSIS 23 (0-50); Potassium 3.9 mmol/L (3.4-5.1); Sodium 132 mmol/L (137-145)
[2024-04-29 14:36] LABS: Albumin 3.9 g/dL (2.9-4.4); Alpha-1-Globulin 0.2 g/dL (0.0-0.4); Alpha-2-Globulin 0.7 g/dL (0.4-1.0); Gamma Globulin 0.8 g/dL (0.4-1.8); Globulin Total 2.3 g/dL (2.2-3.9); Protein, Total 6.2 g/dL (6.0-8.5)
[2024-04-29 21:37] LABS: Free Kappa Lt Chains, Serum 14.5 mg/L (3.3-19.4); Free Lambda Lt Chains,Serum 11.4 mg/L (5.7-26.3)
== END ==
PROVIDERS: Family Provider Family Medicine; PCP Family Medicine; Referring Provider Family Medicine; Visit Provider Family Medicine
DX: E87.1 Hypo-osmolality and hyponatremia (principal)
CPT/HCPCS: 80048; 82533; 83883; 84155; 84165

== ENCOUNTER → 2024-05-09 10:08 | Outpatient (CLI) | payer OTHER, SELFPAY ==
[2023-02-15 19:57] VITALS: BMI 29.1
--- NOTE | 2024-05-09 10:09 | DI.MG.S_ITS ---
UNILATERAL RIGHT DIGITAL DIAGNOSTIC MAMMOGRAM 3D/2D WITH ADDITIONAL VIEWS: 05/09/2024 CLINICAL: Additional evaluation requested from prior study. Comparison is made to exams dated: 04/10/2024 mammogram, 12/17/2020 mammogram, and 11/09/2017 mammogram - [facility]. The breasts are heterogeneously dense, which may obscure small masses (category c / 51-75% glandular tissue). The asymmetry seen in the middle upper region on MLO view on recent screening mammogram did not persist with additional imaging and is consistent with superimposition of normal breast tissue. The asymmetry seen in the middle outer region on CC view on recent screening mammogram did not persist with additional imaging and is consistent with superimposition of normal breast tissue. No significant masses, calcifications, or other findings are seen in the breast. IMPRESSION: NEGATIVE Superimposition of normal breast tissue. No mammographic evidence of malignancy. A 1 year screening mammogram is recommended. Findings and recommendations were conveyed to the patient during today's evaluation. Based on the Tyrer Cuzick model (a risk assessment model) the patient's lifetime risk is 11.2% and her 10 year risk is 5.2%. According to the ACR, ACS, and NCCN guidelines, an annual breast MRI exam along with mammogram is recommended if the patient's lifetime risk is 20% or greater. This exam was interpreted at Station ID: [id number]. NOTE: For mammograms, a report in lay terms will be sent to the patient. Approximately 15% of breast malignancies will not be visualized mammographically. In the management of a palpable breast mass, a negative mammogram must not discourage biopsy of a clinically suspicious lesion. Electronically Signed By: Teresa Salmon M.D., Ph.D. eb/:05/10/2024 17:01:38 copy to: RACHAEL THOMAS letter sent: Normal Exam ACR BI-RADS Category 1: Negative
== END ==
LOC: MAMMO 10:09
PROVIDERS: Family Provider Family Medicine; PCP Family Medicine; Referring Provider Family Medicine; Visit Provider Family Medicine
DX: R92.8 Other abnormal and inconclusive findings on diagnostic imaging of breast (principal); R92.333 Mammographic heterogeneous density, bilateral breasts
CPT/HCPCS: 77065; G0279

== ENCOUNTER → 2024-07-16 13:28 | Outpatient (CLI) | payer OTHER, SELFPAY ==
[2023-02-15 19:57] VITALS: BMI 29.1
[2024-07-21 13:45] LABS: Albumin 3.8 g/dL (2.9-4.4); Alpha-1-Globulin 0.2 g/dL (0.0-0.4); Alpha-2-Globulin 0.7 g/dL (0.4-1.0); Globulin Total 2.7 g/dL (2.2-3.9); Immunoglobulin A, Serum 93 mg/dL (87-352); Immunoglobulin G,Serum 806 mg/dL (586-1602); Immunoglobulin M, Serum 52 mg/dL (26-217); Protein, Total 6.5 g/dL (6.0-8.5)
== END ==
PROVIDERS: Family Provider Family Medicine; PCP Family Medicine; Visit Provider Family Medicine
DX: R77.8 Other specified abnormalities of plasma proteins (principal); E87.1 Hypo-osmolality and hyponatremia
CPT/HCPCS: 82784; 84155; 84165; 86334

== ENCOUNTER → 2024-08-22 11:55 | Outpatient (CLI) | payer OTHER, SELFPAY ==
[2023-02-15 19:57] VITALS: BMI 29.1
--- NOTE | 2024-08-22 11:56 | DI.MRI.S_ITS ---
PROCEDURE: MR HEAD/BRAIN WO CON INDICATIONS: sharp, shock like pains, top of head and Right neck to ear, TECHNIQUE: Non-contrast axial T1 spin echo, axial T2 fast spin echo, sagittal and axial FLAIR, coronal T2 fast spin echo, axial gradient echo, axial diffusion and ADC through the brain. COMPARISON: [facility], CT, CT ANGIO HEAD AND NECK, 02/15/2023, 16:44. [facility], CT, CT HEAD/BRAIN WO CON, 02/15/2023, 16:44. [facility], MR, MR CERVICAL SPINE WO CON, 08/22/2024, 12:22. [facility], MR, MR HEAD/BRAIN WO CON, 02/16/2023, 10:14. FINDINGS: Image quality: Excellent. CSF spaces: Ventricles appear symmetric in size and shape. Basal cisterns are patent. No extra-axial fluid collections. Brain: No intracranial bleeds or mass effects. There is cerebral volume loss for age. There are periventricular and deep white matter chronic small vessel ischemic changes. Brainstem appears normal. Diffusion-weighted images show no acute infarct. No chronic ischemic insults. Normal intravascular flow voids are present. Skull and face: Calvarial bone marrow is normal in signal. Orbits are normal. Sinuses: Sinuses and mastoids are clear. IMPRESSION: No imaging explanation is found for this patient's presenting symptoms. To the limits of this noncontrast study, no findings of intracranial masses or mass effect can be seen. Dictated by: José Luis Salamanca M.D. on 08/22/2024 at 12:41 Approved by: José Luis Salamanca M.D. on 08/22/2024 at 12:43
--- NOTE | 2024-08-22 11:56 | DI.MRI.S_ITS ---
PROCEDURE: MR CERVICAL SPINE WO CON INDICATIONS: sharp, shock like pains, top of head and Right neck to ear TECHNIQUE: Noncontrast sagittal T1 spin echo and T2 fast spin echo, sagittal STIR, foraminal oblique sagittal T2 fast spin echo, and axial gradient echo or T2 fast spin echo through the cervical spine. COMPARISON: [facility], MR, MR HEAD/BRAIN WO CON, 08/22/2024, 12:00. [facility], CT, CT ANGIO HEAD AND NECK, 02/15/2023, 16:44. FINDINGS: Image quality: There is artifact associated with the metallic hardware. Mild motion artifact can be seen. Alignment and Curvature: There is minimal anterolisthesis seen at the C7-T1 level. Bone Marrow: Marrow demonstrates normal overall signal. Spinal Cord: Visualized spinal cord has normal size and signal. No cerebellar tonsillar herniation. Paraspinous Soft Tissues: No paravertebral masses. Prevertebral soft tissues are normal in thickness. Anterior fixation hardware can be seen C4 through C6. Disc spacers are seen at C4-C5 and C5-C6. C2-C3: The disc height is well-preserved. Loss of disc signal is seen at this level. A mild degree of generalized disc osteophyte complex is seen. There is mild right-sided and moderate to prominent left-sided facet hypertrophy. There is moderate to severe left-sided and no right-sided neural foraminal narrowing. No central canal narrowing is seen. C3-C4: The disc height is well-preserved. Loss of disc signal is seen at this level. Coif-bl-[id number] disc osteophyte complex is seen, with a mild central disc osteophyte protrusion. At least moderate facet hypertrophy can be seen. There is moderate to severe right-sided and moderate left-sided neural foraminal narrowing. Mild central canal narrowing is seen. Minimal mass effect can be seen upon the ventral spinal cord. C4-C5: A mild degree of generalized disc osteophyte complex is seen. Mild facet joint hypertrophy is seen. There is [id number] left-sided and no right-sided neural foraminal narrowing. No central canal narrowing is seen. C5-C6: Mild to moderate disc osteophyte complex is seen. Mild to moderate facet hypertrophy is seen. There is [id number] left-sided neural foraminal narrowing and no right-sided neural foraminal narrowing. The central canal is widely patent. C6-C7: At least moderate loss of disc height and disc signal can be seen. At least moderate disc osteophyte complex is seen, which is eccentric to the left. There is a superimposed central disc osteophyte protrusion. Mild to moderate facet hypertrophy is seen. There is moderate to severe left-sided and at least moderate right-sided neural foraminal narrowing. Mild to moderate central canal narrowing is seen at this level. C7-T1: The disc height is well-preserved. Loss of disc signal is seen at this level. A mild degree of generalized disc osteophyte complex is seen. There is [id number] right-sided and at least moderate left-sided facet hypertrophy. There is moderate to severe left-sided and moderate right-sided neural foraminal narrowing. Mild central canal narrowing is seen. IMPRESSION: Anterior fixation hardware seen C4 through C6. Degenerative changes are seen, which are overall worst at the C6-C7 level. Dictated by: José Luis Salamanca M.D. on 08/22/2024 at 12:43 Approved by: José Luis Salamanca M.D. on 08/22/2024 at 12:48
== END ==
PROVIDERS: Family Provider Family Medicine; PCP Family Medicine; Referring Provider Family Medicine; Visit Provider Family Medicine
DX: M54.81 Occipital neuralgia (principal); M47.22 Other spondylosis with radiculopathy, cervical region; M50.10 Cervical disc disorder with radiculopathy, unspecified cervical region; M48.02 Spinal stenosis, cervical region; R29.818 Other symptoms and signs involving the nervous system; Z98.1 Arthrodesis status
CPT/HCPCS: 70551; 72141

== ENCOUNTER → 2024-12-09 12:07 | Outpatient (CLI) | payer MEDICARE, OTHER, SELFPAY ==
[2023-02-15 19:57] VITALS: BMI 29.1
[2024-12-09 19:53] LABS: Add Manual Diff / Slide Review NO; Basophils Absolute Auto 0 /uL (0-100); Basophils Percent Auto 0.6 % (0-2); Eosinophils Absolute Auto 100 /uL (0-450); Eosinophils Percent Auto 2.8 % (2-4); Hematocrit 39.4 % (36-46); Hemoglobin 13.3 g/dL (12.0-16.0); Lymphocytes Absolute Auto 2000 /uL (1100-4500); Lymphocytes Percent Auto 42.3 % (25-40); Mean Corpuscular HGB Conc 33.7 % (30-36); Mean Corpuscular Hemoglobin 30.4 PG (26-34); Mean Corpuscular Volume 90.4 fL (80-100); Monocytes Absolute Auto 300 /uL (0-900); Monocytes Percent Auto 6.9 % (3-14); Neutrophils Absolute Auto 2300 /uL (1500-7000); Neutrophils Percent Auto 47.4 % (50-75); Platelet Count 180 X10^3/uL (150-400); Red Blood Cell Count 4.35 X10^6/uL (4.0-5.2); Red Cell Distribution Width 13.4 % (11.6-14.8); White Blood Cell Count 4.8 X10^3/uL (4.5-11.0)
[2024-12-09 20:02] LABS: Alanine Aminotransferase 14 IU/L (<35); Albumin Globulin Ratio 1.8 (1.0-2.8); Alkaline Phosphatase 67 U/L (38-126); Aspartate Aminotransferase 26 IU/L (14-36); BUN Creatinine Ratio 19.7 (6-22); Bilirubin Total 0.4 mg/dL (0.2-1.3); Blood Urea Nitrogen 14 mg/dL (7-17); Calcium 8.6 mg/dL (8.4-10.2); Carbon Dioxide 29 mmol/L (22-32); Chloride 99 mmol/L (98-107); Estimated Glomerular Filt Rate > 60 mL/min (>60); Globulin 2.2 g/dL (1.7-4.1); Glucose 91 mg/dL (70-99); HEMOLYSIS < 15 (0-50); Lactate Dehydrogenase 178 U/L (120-246); Potassium 4.6 mmol/L (3.4-5.1); Sodium 133 mmol/L (137-145); Total Protein 6.2 g/dL (6.3-8.2)
== END ==
PROVIDERS: Family Provider Family Medicine; PCP Family Medicine; Visit Provider Internal Medicine Hematology & Oncology
DX: D47.2 Monoclonal gammopathy (principal)
CPT/HCPCS: 80053; 82232; 82784; 83615; 83883; 84155; 84165; 85025; 86334

== ENCOUNTER → 2025-04-27 11:29 | Outpatient (CLI) | payer MEDICARE, OTHER, SELFPAY ==
[2023-02-15 19:57] VITALS: BMI 29.1
--- NOTE | 2025-04-27 11:30 | DI.RAD.S_ITS ---
PROCEDURE: XR DEXA AXIAL SKELETON INDICATIONS: Osteoporosis COMPARISON: [facility], , XR DEXA AXIAL SKELETON, 09/22/2022, 13:05. FINDINGS: Lumbar Spine: Bone mineral density 0.782 (previously 0.746) g/cm2, T score -2.4 (previously -2.6). Left Femoral Neck: Bone mineral density 0.631 (previously 0.660) g/cm2, T score -2.0 (previously -1.7). Left Hip: Bone mineral density 0.750 (previously 0.772) g/cm2, T score -1.6 (previously -1.4). Fracture Risk Calculation (when applicable): 10-year fracture risk of a major osteoporotic fracture 10 percent and of a hip fracture 1.5 percent. (T score greater or equal to -1.0 to: NORMAL) (T score from -1.1 to -2.4: OSTEOPENIA) (T score less than or equal to -2.5: OSTEOPOROSIS) IMPRESSION: Osteopenia--- recommend repeat DEXA in 2-3 years for reassessment. Follow-up guidelines as follows: Osteoporosis: Consider a repeat DEXA and Vertebral Fracture Assessment (VFA) exam in 2 years or sooner if medically necessary, to reassess this patient's status. Osteopenia: Consider a repeat DEXA in 2-3 years to reassess this patient's status, or if there is a new clinical indication. Normal: Consider a repeat DEXA in 5 years or sooner, or if there is a new clinical indication. All treatment decisions require clinical judgment and consideration of individual patient factors, including patient preferences, comorbidities, previous drug use, risk factors not captured in the FRAX model (e.g., frailty, falls, vitamin D deficiency, increased bone turnover, interval significant decline in bone density ) and possible under- or over-estimation of fracture risk by FRAX. In addition, the NOF Guide recommends that FDA-approved medical therapies be considered in postmenopausal women and men age >= 50 years with a: * Hip or vertebral (clinical or morphometric) fracture * T-score of <=-2.5 at the spine or hip * Ten-year fracture probability by FRAX of >= 3% for hip fracture or >=20% for major osteoporotic fracture. Dictated by: Dk Cates M.D. on 04/27/2025 at 20:03 Approved by: Dk Cates M.D. on 04/27/2025 at 20:06
== END ==
LOC: MAMMO 11:30
PROVIDERS: PCP Family Medicine; Referring Provider Family Medicine; Visit Provider Family Medicine
DX: M85.89 Other specified disorders of bone density and structure, multiple sites (principal); Z78.0 Asymptomatic menopausal state
CPT/HCPCS: 77080